=== PATIENT | female | born 1975 | race African-American/Black ===

== ENCOUNTER 2020-09-15 09:11 | Outpatient (REF) | payer BC, SELFPAY ==
[2020-09-15 11:33] LABS: Anion Gap 9 (12-20); Blood Urea Nitrogen 11 mg/dL (9-16); Calcium 9.5 mg/dL (8.4-10.2); Carbon Dioxide 29 mmol/L (22-29); Chloride 105 mmol/L (96-108); Estimated Glomerular Filt Rate 59; Glucose Random 84 mg/dL (60-115); Potassium 4.2 mmol/L (3.3-5.1); Sodium 139 mmol/L (135-145)
[2020-09-15 11:39] LABS: B Type Natriuretic Peptide 21 pg/mL (<100)
== END 2020-09-15 09:12 | disposition home or self-care (01) ==
LOC: HO.LAB 09:11
PROVIDERS: PCP Internal Medicine Endocrinology, Diabetes & Metabolism; Visit Provider Internal Medicine Cardiovascular Disease
DX: I42.8 Other cardiomyopathies (principal); I50.20 Unspecified systolic (congestive) heart failure; Z45.02 Encounter for adjustment and management of automatic implantable cardiac defibrillator
CPT/HCPCS: 36415; 80048; 83880

== ENCOUNTER → 2021-03-08 10:45 | Outpatient (REF) | payer BC, SELFPAY ==
--- NOTE | 2021-03-08 10:50 | CA_ITS ---
Transthoracic Echocardiogram Patient (Last, First, Middle): Gracy Nice, Gender: Female Date of : 1975 Age: 46 Procedure Date: 03/08/2021 Procedure Type: Transthoracic Echocardiogram Location: OP Height: 157.48 cm Weight: 63.5 kg BSA: 1.64 m2 Heart Rate: bpm BP: 102 / 60 mmHg Tool Turret Lathe Set Up Operator: NAIDA Referring MD: Horace Ramos MD Carbide Operator: Horace Ramos MD Symptoms: I42.8 - Other cardiomyopathies Study Quality: Good ECG Rhythm: Sinus Conclusions: - 1. Normal LV systolic and diastolic function 2. Mild mitral regurgitation 3. Normal RV systolic pressure 4. No pericardial effusion Findings Left Ventricle Normal left ventricular size, thickness, and systolic function. The visually estimated ejection fraction is between 60-65%. Spectral Doppler is indicative of a normal filling pattern. Peak longitudinal endocardial global strain is mildly reduced at-16.5% Right Ventricle Normal right ventricular cavity size and systolic function. Atria Both atria are normal in size. There is no evidence of interatrial shunt. Aortic Valve Normal aortic valve structure and function. There is no aortic valve stenosis. There is no aortic valve regurgitation. Mitral Valve There is mild anterior and posterior mitral leaflet thickening. There is mild mitral valve regurgitation. There is no mitral valve stenosis. Pulmonic Valve The pulmonic valve is likely normal. Tricuspid Valve Normal tricuspid valve structure. There is trace tricuspid valve regurgitation. The right ventricular systolic pressure is normal. The right ventricular systolic pressure is 20 mmHg. Normal right atrial pressure. There is no evidence of pulmonary hypertension. Great Vessels All visible segments of the aorta are normal in size. The pulmonary artery was not well visualized. Venous The inferior vena cava is normal in size and collapses greater than 50% with inspiration. Pericardium/Pleural There is no evidence of pericardial effusion. Prior Study Comparison No significant change compared to prior study dated: 03/13/2020. Measurements M-Mode Liner Measurements Normals - Women/Men LVIDd: 4.76 3.9-5.3/4.2-5.9 cm LVIDd Index: 2.90 1.9-3.2 cm/m2 LVIDs: 3.22 2.0-3.8 cm LVPWd: 0.72 0.6-0.9/0.6-1.0 cm M-Mode Volumes LV EDV: 105.00 LV ESV: 41.60 2D Linear Measurements IVSd: 0.76 0.6-0.9/0.6-1.0 cm LVIDd: 4.77 3.9-5.3/4.2-5.9 cm LVIDd Index: 2.91 2.4-3.2/2.2-3.1 cm/m2 LVIDs: 3.48 2.0-3.6 cm LVPWd: 0.61 0.7-1.1 cm Ao Root: 2.70 2.1-3.5 cm LA Diam: 3.20 2.7-3.8/3.0-4.0 cm LAIDs Index: 1.95 1.5-2.3 cm/m2 LV Mass: 127.39 67-162/88-224 g LV Mass Index: 77.68 43-95/49-115 g/m2 LVOT Diam: 1.90 3.0+(-)1.3 cm 2D Systolic Function EF 4C: 62.70 >55% EF 2C: 59.40 >55% EF BiP: 61.80 >55% M-Mode Systolic Function FS: 32.40 27-47/25-43% LVEF: 60.40 >55% Mitral Valve MV Pk E: 0.63 MV PK A: 0.33 MV Decel Time: 208.00 E/A: 1.90 E'Lateral: 14.70 E'Medial: 8.49 E/E' Med: 7.50 E/E' Lat: 4.30 PHT: 61.00 MVA PHT: 3.61 Decel [place]: 3.04 Aortic Valve AoV Pk Cm: 1.21 AoV Pk Grad: 6.00 LVOT LVOT Pk Cm: 1.02 LVOT Mn Cm: 0.72 LVOT VTI: 0.21 LVOT Pk Grad: 4.00 LVOT Mn Grad: 2.00 LVOT Diam: 1.90 LVOT Area: 2.84 Diastolic Function MV Pk E: 0.63 MV Pk A: 0.33 E/A: 1.90 E'Medial: 8.49 E/E' Med: 7.50 E' Laterial: 14.70 E/E' Lat: 4.30 Right Ventricle TAPSE (mm): 2.03 Tricuspid Valve TR Pk Cm: 2.04 TR Pk Grad: 17.00 RA Press: 3.00 RVSP: 20.00 Great Vessels Aorta Ao Root-2D: 2.70 2.0-3.7 cm Ao Asc: 2.90 2.1-3.4 cm Updated in Other Vendor System with Status of Final Horace Ramos MD electronically signed on 03/09/2021 12:34:20 PM with status of Final
== END ==
LOC: HO.CARD 10:45
PROVIDERS: Visit Provider Internal Medicine Cardiovascular Disease
DX: I34.0 Nonrheumatic mitral (valve) insufficiency (principal); I42.8 Other cardiomyopathies; I50.20 Unspecified systolic (congestive) heart failure
CPT/HCPCS: 93306

== ENCOUNTER → 2021-03-18 13:10 | Outpatient (BNVA) | payer BC, SELFPAY | PROVIDERS: PCP Internal Medicine; Referring Provider Internal Medicine; Visit Provider Internal Medicine Cardiovascular Disease | DX: I50.20 Unspecified systolic (congestive) heart failure (principal); I42.8 Other cardiomyopathies; I34.0 Nonrheumatic mitral (valve) insufficiency; Z79.899 Other long term (current) drug therapy; Z95.810 Presence of automatic (implantable) cardiac defibrillator | CPT/HCPCS: 93005 ==

== ENCOUNTER 2021-04-16 14:16 | Outpatient (REF) | payer BC, SELFPAY ==
--- NOTE | ~2021-04-16 | MM_ITS ---
EXAMINATION: MM SCREENING DIGITAL BREAST TOMOSYNTHESIS, BILATERAL CLINICAL INFORMATION: Screening. Asymptomatic. The lifetime risk of breast cancer based on the Tyrer-Cuzick Model is 8.8%. COMPARISON: Mammography: May 08, 2018 and studies dating back to January 21, 2015 TECHNIQUE: Digital breast tomosynthesis is performed in both the craniocaudal and mediolateral oblique views along with computer-aided detection (CAD). Synthesized 2D images are generated from the tomosynthesis. FINDINGS: The breasts are extremely dense, which lowers the sensitivity of mammography (ACR BI-RADS breast composition Category d). There are no significant masses, abnormal calcifications, or other abnormalities. Stable bilateral calcifications again seen. MM/MM tomosynthesis screening BI IMPRESSION: There are no significant changes from prior study. ASSESSMENT: BI-RADS 1: Negative RECOMMENDATION: Routine annual mammography screening. This patient's information was entered into a reminder system with a target due date for their next mammogram.
== END 2021-04-16 14:17 | disposition home or self-care (01) ==
LOC: HO.MAMMO 14:16
PROVIDERS: PCP Internal Medicine; Visit Provider Internal Medicine
DX: Z12.31 Encounter for screening mammogram for malignant neoplasm of breast (principal)
CPT/HCPCS: 77063; 77067

== ENCOUNTER → 2021-09-21 13:09 | Outpatient (BNVA) | payer BC, SELFPAY | PROVIDERS: PCP Internal Medicine; Referring Provider Internal Medicine; Visit Provider Internal Medicine Cardiovascular Disease ==

== ENCOUNTER → 2022-02-24 12:51 | Outpatient (REF) | payer BC, SELFPAY ==
--- NOTE | 2022-02-24 13:01 | CA_ITS ---
Transthoracic Echocardiogram Patient (Last, First, Middle): Gracy Nice, Gender: Female Date of : 1975 Age: 47 Procedure Date: 02/24/2022 Procedure Type: Transthoracic Echocardiogram Location: OP Height: 157.48 cm Weight: 64.41 kg BSA: 1.65 m2 Heart Rate: bpm BP: 100 / 60 mmHg Physical Therapy Aides Teacher: TO Referring MD: Horace Ramos MD Symptoms: I42.8 - Other cardiomyopathies Study Quality: Adequate ECG Rhythm: Sinus Conclusions: - The left ventricular systolic function is low normal. The calculated ejection fraction is 51% by biplane method. - No obvious valvular pathology seen on this study. Findings Left Ventricle Normal left ventricular cavity size. There is normal left ventricular wall thickness. The left ventricular systolic function is low normal. The calculated ejection fraction is 51% by biplane method. There is no evidence of regional wall motion abnormalities. Diastolic function is normal for age. LV peak GLS -14.9%. Right Ventricle Normal right ventricular cavity size and systolic function. Atria Both atria are normal in size. Aortic Valve There is a normal trileaflet aortic valve. There is no aortic valve stenosis. There is no aortic valve regurgitation. Mitral Valve There is mild anterior mitral leaflet thickening. There is trace mitral valve regurgitation. There is no mitral valve stenosis. Pulmonic Valve The pulmonic valve is likely normal. Tricuspid Valve Normal tricuspid valve structure. There is trace tricuspid valve regurgitation. The pulmonary artery systolic pressure is normal. Great Vessels The aortic annulus, sinuses of valsalva, asc aorta, and aortic arch are normal in size. Venous The inferior vena cava is normal in size and collapses greater than 50% with inspiration. Pericardium/Pleural There is no evidence of pericardial effusion. Prior Study Comparison Changes noted compared to prior study dated: 03/08/2021. LVEF lower than previously reported. Recommendations, Care & Conclusions No obvious valvular pathology seen on this study. Measurements 2D Linear Measurements IVSd: 0.79 0.6-0.9/0.6-1.0 cm LVIDd: 4.90 3.9-5.3/4.2-5.9 cm LVIDd Index: 2.97 2.4-3.2/2.2-3.1 cm/m2 LVIDs: 3.39 2.0-3.6 cm LVPWd: 0.62 0.7-1.1 cm LA Diam: 3.10 2.7-3.8/3.0-4.0 cm LAIDs Index: 1.88 1.5-2.3 cm/m2 LV Mass: 139.06 67-162/88-224 g LV Mass Index: 84.28 43-95/49-115 g/m2 LVOT Diam: 2.00 3.0+(-)1.3 cm 2D Systolic Function EF 4C: 52.60 >55% EF 2C: 47.00 >55% EF BiP: 51.10 >55% Mitral Valve MV Pk E: 0.53 MV PK A: 0.44 MV Decel Time: 172.00 E/A: 1.20 E'Lateral: 12.10 E'Medial: 6.20 E/E' Med: 8.60 E/E' Lat: 4.40 PHT: 50.00 MVA PHT: 4.40 Decel [place]: 3.09 Aortic Valve AoV Pk Cm: 1.18 AoV Mn Cm: 0.86 AoV VTI: 0.23 AoV Pk Grad: 6.00 Aov Mn Grad: 3.00 JAVIER Cont.VTI: 2.02 LVOT LVOT Pk Cm: 0.84 LVOT Mn Cm: 0.51 LVOT VTI: 0.15 LVOT Pk Grad: 3.00 LVOT Mn Grad: 1.00 LVOT Diam: 2.00 LVOT Area: 3.14 Diastolic Function MV Pk E: 0.53 MV Pk A: 0.44 E/A: 1.20 E'Medial: 6.20 E/E' Med: 8.60 E' Laterial: 12.10 E/E' Lat: 4.40 Right Ventricle TAPSE (mm): 17.80 TVS' Cm: 9.25 Tricuspid Valve TR Pk Cm: 1.94 TR Pk Grad: 15.00 RA Press: 3.00 RVSP: 18.00 Great Vessels Aorta Sinus of Valsalva: 3.18 2.0-3.[address] [place]: 2.43 1.7-3.4 cm Ao Asc: 3.10 2.1-3.4 cm Ao Arch: 2.70 Updated in Other Vendor System with Status of Final Idris Ly MD electronically signed on 02/25/2022 12:37:11 PM with status of Final
== END ==
LOC: HO.CARD 12:51
PROVIDERS: PCP Internal Medicine; Visit Provider Internal Medicine Cardiovascular Disease
DX: I42.8 Other cardiomyopathies (principal)
CPT/HCPCS: 93306; 93356

== ENCOUNTER 2022-07-21 12:37 | Outpatient (REF) | payer BC, SELFPAY | END 2022-07-21 12:38 | disposition home or self-care (01) | LOC: HO.MAMMO 12:37 | PROVIDERS: Visit Provider Internal Medicine | DX: Z12.31 Encounter for screening mammogram for malignant neoplasm of breast (principal) | CPT/HCPCS: 77063; 77067 ==

== ENCOUNTER → 2022-08-15 13:45 | Outpatient (BNVA) | payer BC, SELFPAY | PROVIDERS: PCP Internal Medicine; Referring Provider Internal Medicine; Visit Provider Internal Medicine Cardiovascular Disease | DX: I42.8 Other cardiomyopathies (principal); Z95.810 Presence of automatic (implantable) cardiac defibrillator | CPT/HCPCS: 93005 ==

== ENCOUNTER 2023-06-19 13:09 | Outpatient (AMB) | payer BC, SELFPAY ==
[2023-06-19 13:30] VITALS: BP 114/62; PULSE 64; BMI 26.1
--- NOTE | 2023-06-19 13:30 | A.OFFVIS_ITS ---
Intake Vital Signs 06/19/23 13:30 Height 5 ft 2 in Weight 142 lb 13.753 oz BMI 26.1 BP 114/62 Blood Pressure Location Lt brachial Position Sitting Pulse 64 Pulse Source Pulse Oximeter Intake Visit Reasons: 6 month f/u pacer check Allergies No Known Allergies [No Known Allergies*] Allergy (Verified 06/19/23 13:33) Medication List - Last Reconciled 06/19/23 by Sandra Agrawal, FIRST OFFICER AND [employer] INSTRUCTOR-C carvedilol 25 mg PO BID spironolactone 25 mg PO DAILY valsartan 160 mg PO BID HPI 6 month f/u pacer check HPI Details Gracy is a 48-year-old female with past medical history of nonischemic cardiomyopathy, heart failure with reduced EF, subcutaneous ICD, mitral regurgitation who presents for follow-up. Today she reports that she has been feeling very well. She has no concerning symptoms. She denies chest discomfort, shortness of breath, palpitation, presyncope, syncope, PND, orthopnea or edema. She has not been doing as much physical activity as she would like. She is currently working from home. Taking all meds as directed. [facility] Medical History ICD (implantable cardioverter-defibrillator) in place Nonischemic cardiomyopathy Mitral regurgitation Heart failure with reduced ejection fraction History of transesophageal echocardiography (KASHIF) Surgical History Hx of section History of permanent cardiac pacemaker placement Family History Father No problems noted. Mother Colon cancer Social History Alcohol intake: never Patient Tobacco Use Status: Never used Tobacco Review of Systems Const All systems reviewed & are unremarkable except as noted in HPI and below ENT Denies dizziness Card Denies chest pain, Denies chest pain at rest, Denies chest pain with activity, Denies rapid heart rate, Denies pedal edema, Denies edema, Denies leg edema, Denies lightheadedness, Denies palpitations, Denies dyspnea, Denies dyspnea on exertion and Denies orthopnea Resp Denies cough, Denies dyspnea and Denies dyspnea on exertion GI Denies hematochezia and Denies change in stool character Musc Denies abnormal gait, Denies limited range of motion, Denies muscle cramps, Denies muscle weakness, Denies numbness, Denies radiating pain into limb, Denies stiffness and Denies tingling Neuro Denies abnormal gait, Denies dizziness, Denies numbness and Denies tingling Endo Denies palpitations Physical Exam Vital Signs: Last Vital Signs Pulse 64 06/19/23 13:30 BP 114/62 06/19/23 13:30 BMI result Body Mass Index 26.1 Const General: cooperative, healthy appearing, comfortable and no acute distress Orientation/consciousness: patient oriented x3 HEENT Head: Yes normal to inspection Eyes Sclerae: sclerae normal Neck Neck: Yes normal visual inspection Carotids: normal carotid upstroke Chest Chest palpation & inspection: normal inspection of the chest Resp Effort & Inspection: normal respiratory effort Auscultation: clear to auscultation bilaterally, no crackles, no rales, no rhonchi and no wheezes Cardio Jugular venous distension: no JVD Rate: regular rate Rhythm: regular rhythm Heart sounds: S1 normal heart sound present, S2 normal heart sound present, no murmurs and no rubs Peripheral pulses: Peripheral pulses 2+ throughout GI Inspection: Yes normal to inspection Skin General skin exam: no rashes or lesions noted Neuro General: patient oriented x3 Extrem General: Yes normal to inspection Psych Appearance: grossly normal Mental Status: mental status grossly normal Speech and movement: Normal speech and movement present Office Procedures Cardiac Device Check Cardiac Device Check Details: [employer] subcutaneous ICD interrogation today showing battery 35%, no episodes, no shocks delivered, rep present, soft were updated. [id number] Device Interrogation, implantable defibrillator Procedure code (CPT) selection complete Assessment & Plan Assessment & Plan (1) Nonischemic cardiomyopathy: Code(s): I42.8 - Other cardiomyopathies Plan: History of nonischemic cardiomyopathy. Unknown if genetic versus peripartum. Subcutaneous ICD in place. Benefit of Genetic counseling was previously reviewed with her. She is currently on carvedilol and valsartan for neurohormonal modulation. She was intolerant to Entresto in the past and describes allergic type reaction to it. She is tolerating valsartan without any concerning symptoms. Last echocardiogram done on 02/24/2022 showed EF 51%, no significant valve abnormalities. On exam today she has no clinical signs of decompensated heart failure. Signs and symptoms of heart failure reviewed. Will update echo prior to her next visit. Cardiology follow-up 6 months, sooner if needed (2) ICD (implantable cardioverter-defibrillator) in place: Code(s): Z95.810 - Presence of automatic (implantable) cardiac defibrillator Plan: Subcutaneous ICD in place. Interrogation today shows it is functioning normally. No therapies required. Instructed on remote monitoring. Office device check in 6 months (3) Mitral regurgitation: Code(s): I34.0 - Nonrheumatic mitral (valve) insufficiency Plan: Echocardiogram 03/08/2021 shows mild anterior and posterior mitral leaflet thickening, mild mitral valve regurgitation, no stenosis. Echocardiogram done 02/24/2022 shows mild anterior mitral leaflet thickening, trace mitral valve regurgitation, no mitral stenosis. (4) Heart failure with reduced ejection fraction: Code(s): I50.20 - Unspecified systolic (congestive) heart failure Plan: Stable as above Orders: Orders CA echo transthoracic complete 5 Months I34.0 - Nonrheumatic mitral (valve) insufficiency, I50.20 - Unspecified systolic (congestive) heart failure Coding Level of Care Code Est Pt Level 3 (40160) Diagnoses Nonischemic cardiomyopathy I42.8 ICD (implantable cardioverter-defibrillator) in place Z95.810 Mitral regurgitation I34.0 Heart failure with reduced ejection fraction I50.20 CPT Codes Cardiac Device Check - Cardiac Device 9: [id number] Device Interrogation, implantable defibrillator ([id number]) Time Spent (min) 24
== END 2023-06-19 13:55 | disposition home or self-care (01) ==
PROVIDERS: PCP Internal Medicine; Visit Provider Nurse Practitioner Family
DX: I42.8 Other cardiomyopathies (principal); Z95.810 Presence of automatic (implantable) cardiac defibrillator; I34.0 Nonrheumatic mitral (valve) insufficiency; I50.20 Unspecified systolic (congestive) heart failure
CPT/HCPCS: 93289; 99213

== ENCOUNTER → 2023-06-19 13:09 | Outpatient (BNVA) | payer BC, SELFPAY | PROVIDERS: PCP Internal Medicine; Visit Provider Nurse Practitioner Family ==

== ENCOUNTER 2023-12-18 14:23 | Outpatient (AMB) | payer BC, SELFPAY ==
[2023-12-18 14:37] VITALS: BP 120/74; PULSE 72; BMI 25.8
--- NOTE | 2023-12-18 14:37 | A.OFFVIS_ITS ---
Vital Signs 12/18/23 14:37 Height 5 ft 2 in Weight 141 lb 1.533 oz BMI 25.8 BP 120/74 Blood Pressure Location Lt brachial Position Sitting Pulse 72 Intake Visit Reasons: 6 mth w/ [facility] Intake Note: 6 month follow[facility]up with [facility] acute [facility] feeling good Infrastructure Tech Required: No Allergies Entresto Adverse Reaction (Intermediate, Uncoded 10/31/23 11:17) Intolerance Medication List - Last Reconciled 12/18/23 by Horace Ramos MD carvedilol 25 mg PO BID spironolactone 25 mg PO DAILY valsartan 160 mg PO BID HPI Comments Details: Gracy comes for follow-up. She has been doing well from cardiac perspective. No remote monitoring of ICD is available. Last checked about a year and half ago. She has been doing well otherwise. She has been exercising regularly. Denies any exertional shortness of breath. No orthopnea, PND, leg edema. Taking all her medications regularly. Denies any palpitations, ICD discharge. [facility] Medical History ICD (implantable cardioverter-defibrillator) in place Nonischemic cardiomyopathy Mitral regurgitation Heart failure with reduced ejection fraction History of transesophageal echocardiography (KASHIF) Surgical History Hx of section History of permanent cardiac pacemaker placement Family History Father No problems noted. Mother Colon cancer Social History Alcohol intake: never Patient Tobacco Use Status: Never used Tobacco Review of Systems Const Denies chills, Denies fatigue, Denies fever(s), Denies frequent falls, Denies weakness, Denies weight gain and Denies weight loss ENT Denies dizziness Card Denies chest pain, Denies leg edema, Denies lightheadedness, Denies palpitations, Denies dyspnea, Denies dyspnea on exertion, Denies orthopnea and Denies other (loss of consciousness) Resp Denies cough, Denies dyspnea and Denies dyspnea on exertion GI Denies hematochezia and Denies change in stool character Musc Denies abnormal gait, Denies muscle weakness, Denies numbness, Denies radiating pain into limb and Denies tingling Neuro Denies abnormal gait, Denies dizziness, Denies frequent falls, Denies numbness, Denies tingling and Denies weakness Endo Denies fatigue and Denies palpitations Physical Exam Vital Signs: Last Vital Signs Pulse 72 12/18/23 14:37 BP 120/74 12/18/23 14:37 BMI result Body Mass Index 25.8 Const General: cooperative, comfortable, alert, awake and well groomed Nutritional Appearance: average body habitus Orientation/consciousness: patient oriented x3 Limitations: no limitations Neck Neck: Yes normal visual inspection, Yes trachea midline, Yes supple and Yes no JVD Chest Chest palpation & inspection: normal inspection of the chest Resp Effort & Inspection: normal respiratory effort Auscultation: clear to auscultation bilaterally Cardio Jugular venous distension: no JVD Palpation: normal PMI Rate: regular rate Rhythm: regular rhythm Heart sounds: S1 normal heart sound present and S2 normal heart sound present Skin General skin exam: no rashes or lesions noted Neuro General: patient oriented x3 and no focal motor deficits Extrem General: Yes no clubbing, cyanosis or edema Psych Appearance: grossly normal Office Procedures Cardiac Device Check Cardiac Device Check Details: Subcutaneous [employer] ICD in place. Battery life is 29%. System impedances within normal limits. No arrhythmias detected. Ventricular sensing is adequate. [id number] Device Interrogation, implantable defibrillator Procedure code (CPT) selection complete Assessment & Plan Assessment & Plan (1) Heart failure with reduced ejection fraction: Code(s): I50.20 - Unspecified systolic (congestive) heart failure Category: Medical Plan: Prior history of heart failure with reduced ejection fraction with marked LV systolic dysfunction with heart failure syndrome in LV systolic function having improved. She does not have any evidence of heart failure at this point time, currently not on any diuretic regimen. She seems to be doing well with NYHA class 1 syndrome. LV ejection fraction has near normalized and she is tolerated current neurohormonal modulation very well. Continue the same. Importance of medical therapy was discussed. Continue carvedilol, spironolactone and valsartan. 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 Follow-up echocardiogram in near future. (2) ICD (implantable cardioverter-defibrillator) in place: Code(s): Z95.810 - Presence of automatic (implantable) cardiac defibrillator Category: Medical Plan: ICD in place for primary prevention. Working well. Advise to turn on her remote monitoring device so we can check her device quarterly. Will follow up in the clinic in 6 months time. Will follow up in 6 months. Thank you for allowing me to partake in the care Coding Level of Care Code Est Pt Level 4 (18991) Diagnoses Heart failure with reduced ejection fraction I50.20 ICD (implantable cardioverter-defibrillator) in place Z95.810 CPT Codes Cardiac Device Check - Cardiac Device 9: [id number] Device Interrogation, implantable defibrillator ([id number])
== END 2023-12-18 15:07 | disposition home or self-care (01) ==
PROVIDERS: PCP Internal Medicine; Visit Provider Internal Medicine Cardiovascular Disease
DX: I50.20 Unspecified systolic (congestive) heart failure (principal); Z95.810 Presence of automatic (implantable) cardiac defibrillator
CPT/HCPCS: 93260; 99214

== ENCOUNTER → 2023-12-18 14:23 | Outpatient (BNVA) | payer BC, SELFPAY | PROVIDERS: PCP Internal Medicine; Visit Provider Internal Medicine Cardiovascular Disease ==

== ENCOUNTER → 2024-01-11 23:59 | Outpatient (BNV) | payer BC, SELFPAY ==
--- NOTE | 2024-01-22 13:26 | A.OFFVIS_ITS ---
Intake Visit Reasons: Remote ICD Device Check - [employer] Allergies Entresto Adverse Reaction (Intermediate, Uncoded 10/31/23 11:17) Intolerance PFSH Medical History ICD (implantable cardioverter-defibrillator) in place Nonischemic cardiomyopathy Mitral regurgitation Heart failure with reduced ejection fraction History of transesophageal echocardiography (KASHIF) Surgical History Hx of section History of permanent cardiac pacemaker placement Family History Father No problems noted. Mother Colon cancer Social History Alcohol intake: never Patient Tobacco Use Status: Never used Tobacco Office Procedures Cardiac Device Check Cardiac Device Check Details: Remote ICD report generated 01/15/2024. ICD function is adequate. Battery life is at 29%, stable [id number] Cardiac Device Interrogation, cardio physiologic monitor Procedure code (CPT) selection complete Assessment & Plan Assessment & Plan (1) ICD (implantable cardioverter-defibrillator) in place: Code(s): Z95.810 - Presence of automatic (implantable) cardiac defibrillator Category: Medical Plan: See above Coding Level of Care Code Procedure Only Diagnoses ICD (implantable cardioverter-defibrillator) in place Z95.810 CPT Codes Cardiac Device Check - Cardiac Device 15: [id number] Cardiac Device Interrogation, cardio physiologic monitor ([id number])
== END ==
PROVIDERS: PCP Internal Medicine; Visit Provider Internal Medicine Cardiovascular Disease
DX: Z45.02 Encounter for adjustment and management of automatic implantable cardiac defibrillator (principal)
CPT/HCPCS: 93295

== ENCOUNTER 2024-02-02 11:30 | Outpatient (REF) | payer BC, SELFPAY ==
--- NOTE | ~2024-02-02 | MM_ITS ---
EXAMINATION: MM SCREENING DIGITAL BREAST TOMOSYNTHESIS, BILATERAL CLINICAL INFORMATION: Screening. Asymptomatic. COMPARISON: Mammography: This study is compared with prior exams dating back to 2017. TECHNIQUE: Digital breast tomosynthesis is performed in both the craniocaudal and mediolateral oblique views along with computer-aided detection (CAD). Synthesized 2D images are generated from the tomosynthesis. FINDINGS: The breasts are heterogeneously dense, which may obscure small masses (ACR BI-RADS breast composition Category c). There are no significant masses, abnormal calcifications, or other abnormalities. There are 2 biopsy tissue markers in the right breast. MM/MM tomosynthesis screening BI IMPRESSION: No mammographic evidence of malignancy. ASSESSMENT: BI-RADS BI-RADS 2 - Benign Findings RECOMMENDATION: Routine annual mammography screening. 1 year F/U This examination should not preclude the clinical evaluation of a suspicious palpable abnormality. This patient's information was entered into a reminder system with a target due date for their next mammogram.
--- NOTE | 2024-02-02 12:14 | CA_ITS ---
Transthoracic Echocardiogram Patient (Last, First, Middle): Gracy Nice, Gender: Female Date of : 1975 Age: 49 Procedure Date: 02/02/2024 Procedure Type: Transthoracic Echocardiogram Location: OP Height: 157.48 cm Weight: 60.78 kg BSA: 1.61 m2 Heart Rate: 58 bpm BP: 108 / 56 mmHg Scanning Clerk: [id number] Referring MD: Horace Ramos MD Symptoms: I42.8 - Other cardiomyopathies Study Quality: Adequate ECG Rhythm: Bradycardia Conclusions: - The left ventricular systolic function is mildly decreased. The calculated ejection fraction is 49% by biplane method. - No obvious valvular pathology seen on this study. Findings Left Ventricle Normal left ventricular cavity size. There is normal left ventricular wall thickness. The left ventricular systolic function is mildly decreased. The calculated ejection fraction is 49% by biplane method. There is mild global hypokinesis. Diastolic function is normal for age. LV peak GLS -14.7%, possibly some under-estimation. Right Ventricle Normal right ventricular cavity size. There is low normal right ventricular systolic function. Atria Both atria are normal in size. Aortic Valve There is a normal trileaflet aortic valve. There is no aortic valve stenosis. There is no aortic valve regurgitation. Mitral Valve The mitral valve appears normal. There is mild mitral valve regurgitation. There is no mitral valve stenosis. Pulmonic Valve The pulmonic valve is likely normal. Tricuspid Valve Normal tricuspid valve structure. There is mild tricuspid valve regurgitation. There is no evidence of pulmonary hypertension. Great Vessels The asc aorta is normal in size. Venous The inferior vena cava is normal in size and collapses greater than 50% with inspiration. Pericardium/Pleural There is no evidence of pericardial effusion. Prior Study Comparison No significant change compared to prior study dated: 02/24/2022. Recommendations, Care & Conclusions No obvious valvular pathology seen on this study. Measurements 2D Linear Measurements IVSd: 0.79 0.6-0.9/0.6-1.0 cm LVIDd: 5.15 3.9-5.3/4.2-5.9 cm LVIDd Index: 3.20 2.4-3.2/2.2-3.1 cm/m2 LVIDs: 3.96 2.0-3.6 cm LVPWd: 0.55 0.7-1.1 cm LA Diam: 3.40 2.7-3.8/3.0-4.0 cm LAIDs Index: 2.11 1.5-2.3 cm/m2 LV Mass: 142.63 67-162/88-224 g LV Mass Index: 88.59 43-95/49-115 g/m2 LVOT Diam: 2.00 3.0+(-)1.3 cm 2D Systolic Function EF 4C: 47.60 >55% EF 2C: 52.20 >55% EF BiP: 48.90 >55% Mitral Valve MV Pk E: 0.70 MV PK A: 0.36 MV Decel Time: 260.00 E/A: 2.00 E'Lateral: 11.30 E'Medial: 8.27 E/E' Med: 8.50 E/E' Lat: 6.20 PHT: 76.00 MVA PHT: 2.[address] [place]: 2.70 MR VTI: 1.86 Aortic Valve AoV Pk Cm: 1.10 AoV Pk Grad: 5.00 JAVIER: 2.50 LVOT LVOT Pk Cm: 0.88 LVOT Mn Cm: 0.62 LVOT VTI: 0.19 LVOT Pk Grad: 3.00 LVOT Mn Grad: 2.00 LVOT Diam: 2.00 LVOT Area: 3.14 Diastolic Function MV Pk E: 0.70 MV Pk A: 0.36 E/A: 2.00 E'Medial: 8.27 E/E' Med: 8.50 E' Laterial: 11.30 E/E' Lat: 6.20 Right Ventricle TAPSE (mm): 23.00 Tricuspid Valve TR Pk Cm: 2.05 TR Pk Grad: 17.00 RA Press: 3.00 RVSP: 20.00 Great Vessels Aorta Sinus of Valsalva: 3.20 2.0-3.5 cm Ao Asc: 3.10 2.1-3.4 cm Pulmonary Veins Pulm Vein S/D 1.00 Pulmonary Valve PV Pk Cm: 0.62 Peak PV Grad: 2.00 Updated in Other Vendor System with Status of Final Idris Ly MD electronically signed on 02/03/2024 1:02:44 PM with status of Final
== END 2024-02-02 11:31 | disposition home or self-care (01) ==
LOC: HO.MAMMO 11:30
PROVIDERS: PCP Internal Medicine; Visit Provider Internal Medicine
DX: Z12.31 Encounter for screening mammogram for malignant neoplasm of breast (principal); I42.8 Other cardiomyopathies
CPT/HCPCS: 77063; 77067; 93306; 93356

== ENCOUNTER → 2024-02-02 11:45 | Outpatient (BNV) | payer BC, SELFPAY | PROVIDERS: PCP Internal Medicine; Visit Provider Radiology Diagnostic Radiology | DX: Z12.31 Encounter for screening mammogram for malignant neoplasm of breast (principal) | CPT/HCPCS: 77063; 77067 ==

== ENCOUNTER → 2024-02-02 12:14 | Outpatient (BNV) | payer BC, SELFPAY | PROVIDERS: PCP Internal Medicine; Visit Provider Internal Medicine | DX: I34.0 Nonrheumatic mitral (valve) insufficiency (principal); I36.1 Nonrheumatic tricuspid (valve) insufficiency | CPT/HCPCS: 93306; 93356 ==

== ENCOUNTER 2024-02-27 07:05 | Outpatient (REF) | payer BC, SELFPAY ==
[2024-02-27 07:24] LABS: MANUAL DIFF FLAG NO
[2024-02-27 08:03] LABS: Basophils Percent Auto 0.9 % (0-2); Eosinophils Absolute Auto 0.5 X10*3/uL (0.0-0.4); Eosinophils Percent Auto 11.6 % (0-4); Hematocrit 34.7 % (37.0-47.0); Hemoglobin 11.7 g/dl (12.0-16.0); Imm Gran Abs Auto 0.01 X10*3/uL (0.00-0.03); Imm Gran Pct Auto 0.2 % (0.0-0.4); Lymphocytes Absolute Auto 1.9 X10*3/uL (1.2-4.9); Lymphocytes Percent Auto 44.4 % (20-40); Mean Corpuscular HGB Conc 33.7 g/dl (31.0-35.0); Mean Corpuscular Hemoglobin 28.3 pg (27.0-33.0); Mean Corpuscular Volume 83.8 fL (80.0-98.0); Mean Platelet Volume 10.6 fL (9.4-12.3); Monocytes Absolute Auto 0.5 X10*3/uL (0.1-1.2); Monocytes Percent Auto 11.6 % (2-11); Neutrophils Absolute Auto 1.3 x10*3/uL (2.0-8.3); Neutrophils Percent Auto 31.3 % (45-73); Platelet Count 184 X10*3/uL (160-400); Red Blood Count 4.14 X10*6/uL (4.20-5.50); Red Cell Distribution Width 12.1 % (11.0-16.0); White Blood Count 4.3 X10*3/uL (4.8-10.8)
[2024-02-27 08:04] LABS: Prothrombin Time 12.1 SEC (11.1-13.3)
[2024-02-27 08:28] LABS: Anion Gap 11 (12-20); Blood Urea Nitrogen 10 mg/dL (9-16); Calcium 9.7 mg/dL (8.4-10.2); Carbon Dioxide 25 mmol/L (22-29); Chloride 107 mmol/L (96-108); Estimated Glomerular Filt Rate > 60; Glucose Random 93 mg/dL (60-115); Potassium 3.9 mmol/L (3.3-5.1); Sodium 139 mmol/L (135-145)
== END 2024-02-27 07:06 | disposition home or self-care (01) ==
LOC: HO.LAB 07:05
PROVIDERS: PCP Internal Medicine; Visit Provider Internal Medicine Cardiovascular Disease
DX: Z45.02 Encounter for adjustment and management of automatic implantable cardiac defibrillator (principal); Z79.01 Long term (current) use of anticoagulants
CPT/HCPCS: 36415; 80048; 85025; 85610

== ENCOUNTER 2024-02-28 06:24 | Day surgery (SDC) | payer BC, SELFPAY ==
--- NOTE | 2024-02-27 09:06 | HO.ANESPROP2 ---
Documented by User: Lyssa Cardona NP 02/27/24 09:19 HPI - Anesthesia Eval Consult details Narrative: 49yo F for ICD Generator Change ICD inserted 2018 Follows [facility] [place] for history of heart failure with reduced ejection fraction with marked LV systolic dysfunction with heart failure syndrome in LV systolic function having improved. Last office visit 11/2023: stable without limitations in activity PMFSH Active Problems Active Problems: All Active Problems ICD (implantable cardioverter-defibrillator) in place (Acute) Nonischemic cardiomyopathy (Acute) Mitral regurgitation (Acute) Heart failure with reduced ejection fraction (Acute) Past Medical History Medical History (Updated 02/05/24 @ 07:48 by Nicole Banda NP) ICD (implantable cardioverter-defibrillator) in place Nonischemic cardiomyopathy Mitral regurgitation Heart failure with reduced ejection fraction History of transesophageal echocardiography (KASHIF) Family History Family History Father No problems noted. Mother Colon cancer Surgical History Surgical History Hx of section History of permanent cardiac pacemaker placement Social History Social History Alcohol intake: never Patient Tobacco Use Status: Never used Tobacco Use of substances other than those prescribed or required for medical reasons: No Are you DNR?: No Advance Directives: No Advance Directives Information Provided: Yes Meds Allergies Allergy/AdvReac Type Severity Reaction Status Date / Time Entresto AdvReac Intermediate Intolerance Uncoded 02/28/24 06:38 Exam Pertinent Lab Results Pertinent Lab Results: Laboratory Tests 02/27/24 07:22 WBC 4.3 L Hgb 11.7 L Hct 34.7 L Plt Count 184 Sodium 139 Potassium 3.9 Chloride 107 Carbon Dioxide 25 BUN 10 Creatinine 0.98 Narrative Narrative: Cardiac Device Check 12/2023 Details: Remote ICD report generated 01/15/2024. ICD function is adequate. Battery life is at 29%, stable [id number] Cardiac Device Interrogation, cardio physiologic monitor ECHO 2023 Conclusions: - The left ventricular systolic function is mildly decreased. The calculated ejection fraction is 49% by biplane method. - No obvious valvular pathology seen on this study. Assessment and Plan Assessment Anesthesia Assessment: Chart Reviewed Documented by User: Esvin Stock MD 02/28/24 07:36 PMFSH Past Medical History Medical History (Updated 02/05/24 @ 07:48 by Nicole Banda NP) ICD (implantable cardioverter-defibrillator) in place Nonischemic cardiomyopathy Mitral regurgitation Heart failure with reduced ejection fraction History of transesophageal echocardiography (KASHIF) Family History Family History Father No problems noted. Mother Colon cancer Family history of problems with anesthesia: No Surgical History Surgical History Hx of section History of permanent cardiac pacemaker placement History of Problems with Anesthesia: No Social History Social History Alcohol intake: never Patient Tobacco Use Status: Never used Tobacco Use of substances other than those prescribed or required for medical reasons: No Are you DNR?: No Advance Directives: No Advance Directives Information Provided: Yes Meds Allergies Allergy/AdvReac Type Severity Reaction Status Date / Time Entresto AdvReac Intermediate Intolerance Uncoded 02/28/24 06:38 Exam Airway Mallampati Class: II TM Dist: <=3cm Neck ROM: Full Loose/Missing/Broken Teeth: No Heart: ok. see above. Lungs: ok Assessment and Plan Assessment Anesthesia Assessment: Anesthesia Plan Discussed Final Anesthetic Review Family History of Problems with Anesthesia: No History of Problems with Anesthesia: No NPO: Yes ASA Class: III Final Preanesthetic Review: No Changes in Pt Med Stat, Meds/Allgs Chart Reviewed, Consent Obtained/Reviewed and Anes Risks/Benef Reviewed Patient Risk: Intermediate Procedure Risk: Low Anesthetic Plan Anesthetic Plan: Agree w/ Assess. and Plan and TIVA Disposition: Standard PACU
[2024-02-28 06:41] VITALS: BP 108/77; PULSE 75; RESP 18; TEMP 36.6; O2SAT 99; BMI 26.7
[2024-02-28 06:47] LABS: UPreg QC Valid YES; Urine Pregnancy NEGATIVE (NEGATIVE)
[2024-02-28] MEDS: Lactated Ringers 1,000 ML 100 ML IVCONT (06:56)
[2024-02-28 09:20] VITALS: BP 97/62; PULSE 72; RESP 16; TEMP 36.1; O2SAT 99
[2024-02-28 09:25] VITALS: BP 102/66; PULSE 66; RESP 16; O2SAT 98
[2024-02-28 09:30] VITALS: BP 104/67; PULSE 64; RESP 16; O2SAT 99
[2024-02-28 09:35] VITALS: BP 112/70; PULSE 62; RESP 16; O2SAT 100
[2024-02-28 09:50] VITALS: BP 115/71; PULSE 68; RESP 16; TEMP 36.3; O2SAT 100
--- NOTE | 2024-02-28 11:17 | W.PM.OPN ---
Operative Note Operative Note Date of Service: 02/28/24 Narrative: Subcutaneous?ICD?Generator Changeout? NAME OF PROCEDURE: ? Subcutaneous?ICD? INDICATION FOR PROCEDURE:??Primary prevention ICD for systolic heart failure ? SEDATION:??General anesthesia Description of Procedure:??Patient was identified brought to the electrophysiology laboratory in a postabsorptive state.??The left sided chest region extending laterally to the left posterior axillary line and through the left axilla. was prepped and draped in usual sterile fashion,?The initial incision was made lateral to the left of the pectoralis major muscle in a diagonal approach and was carried to the level of the pectoralis fascia in a diagonal approach and was carried to the level of the muscle.? Dissection was then carried down posteriorly along the thoracic cage deep to the latissimus dorsi muscle, where hemostasis was assured inside the pocket to accommodate the?ICD?pulse generator. The patient received IV Antibiotics prior to the case for surgical prophylaxis. Hemostasis was obtained with electrocautery. Substernal pocket was made and the lead was tunneled into the pocket and towards the midline. The ICD?pulse generator was programmed and was attached to the lead, with the lead being appropriately and fully inserted into the header of the device and the set screw was tightened using the torque wrench.? The?ICD?was then placed into the?ICD?pocket with the lead posterior to the pulse generator.? The head of the?ICD?was secured to the latissimus dorsi fascia using Ethibond suture.? The pockets were then closed with 3 layers of absorbable sutures.?? Patient tolerated the procedure well.??There were no complications. ? IMPRESSION: ? Subcutaneous?ICD?placement ([employer] PLAN: ? 1.?Routine postprocedure monitoring. 2. ? ?Pain control
== END 2024-02-28 10:34 | disposition home or self-care (01) ==
PROVIDERS: Nurse Practitioner; PCP Internal Medicine; Visit Provider Internal Medicine Cardiovascular Disease
PROC: 0JPT0PZ Removal of Cardiac Rhythm Related Device from Trunk Subcutaneous Tissue and Fascia, Open Approach (ICD-10-PCS; principal; 2024-02-28 07:30)
DX: Z45.02 Encounter for adjustment and management of automatic implantable cardiac defibrillator (principal); I50.20 Unspecified systolic (congestive) heart failure; I42.8 Other cardiomyopathies; I34.0 Nonrheumatic mitral (valve) insufficiency
CPT/HCPCS: 33262; 81025; C1722; C1894; J0690; J1100; J2250; J2405; J2704; J2795; J3010; J3370; Q9967

== ENCOUNTER 2024-04-15 13:07 | Outpatient (AMB) | payer BC, SELFPAY ==
--- NOTE | 2024-04-15 13:36 | A.OFFVIS_ITS ---
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 She has been doing very well. She is status post pulse generator change for her subcutaneous ICD. No new cardiac symptoms. Takes all medications. Exercise regularly without any symptoms of shortness of breath. No orthopnea, PND, leg edema. No side effects medical therapy. No prolonged palpitation irregular heartbeat. No ICD discharge. Echocardiogram done recently showed reduced LV ejection fraction 49% [facility] Medical History (Updated 04/15/24 @ 16:10 by Horace Ramos MD) Heart failure with reduced ejection fraction ICD (implantable cardioverter-defibrillator) in place Nonischemic cardiomyopathy Mitral regurgitation History of transesophageal echocardiography (KASHIF) Surgical History Hx of section History of permanent cardiac pacemaker placement Family History Father No problems noted. Mother Colon cancer Social History Alcohol intake: never Patient Tobacco Use Status: Never used Tobacco Review of Systems Const Denies chills, Denies fatigue, Denies fever(s), Denies frequent falls, Denies weakness, Denies weight gain and Denies weight loss ENT Denies dizziness Card Denies chest pain, Denies leg edema, Denies lightheadedness, Denies palpitations, Denies dyspnea, Denies dyspnea on exertion, Denies orthopnea and Denies other (loss of consciousness) Resp Denies cough, Denies dyspnea and Denies dyspnea on exertion GI Denies hematochezia and Denies change in stool character Musc Denies abnormal gait, Denies muscle weakness, Denies numbness, Denies radiating pain into limb and Denies tingling Neuro Denies abnormal gait, Denies dizziness, Denies frequent falls, Denies numbness, Denies tingling and Denies weakness Endo Denies fatigue and Denies palpitations Physical Exam Vital Signs: Last Vital Signs Pulse 68 04/15/24 13:37 BP 120/70 04/15/24 13:37 BMI result Body Mass Index 25.8 Const General: cooperative, comfortable, alert, awake and well groomed Nutritional Appearance: average body habitus Orientation/consciousness: patient oriented x3 Limitations: no limitations Neck Neck: Yes normal visual inspection, Yes trachea midline, Yes supple and Yes no JVD Chest Chest palpation & inspection: normal inspection of the chest Resp Effort & Inspection: normal respiratory effort Auscultation: clear to auscultation bilaterally Cardio Jugular venous distension: no JVD Palpation: normal PMI Rate: regular rate Rhythm: regular rhythm Heart sounds: S1 normal heart sound present and S2 normal heart sound present Skin General skin exam: no rashes or lesions noted Neuro General: patient oriented x3 and no focal motor deficits Extrem General: Yes no clubbing, cyanosis or edema Psych Appearance: grossly normal Office Procedures Cardiac Device Check Cardiac Device Check Details: [employer] subcutaneous ICD in place battery life is 99%. No arrhythmias detected. System impedance is within normal limits. Sensing is excellent. [id number]-[id number] Device Interrogation, implantable defibrillator Procedure code (CPT) selection complete EKG Details: EKG shows normal sinus rhythm with anterior T-wave inversions most likely due to cardiomyopathy process [id number]-Vothshryuxcspwwdu, Complete Assessment & Plan Assessment & Plan (1) Nonischemic cardiomyopathy: Code(s): I42.8 - Other cardiomyopathies Category: Medical Plan: Nonischemic cardiomyopathy with mild LV systolic dysfunction current medical therapy with resolved heart failure syndrome. She is clinically doing well on current therapy. No signs or symptoms of heart failure. Does not require any loop diuretic therapy. Continue neurohormonal modulation with carvedilol, valsartan spironolactone. Has not tolerated Entresto therapy in the past. Importance of medical therapy was discussed. Encouraged to continue to participate in physical activity as tolerated. Advised to call me with new symptoms. (2) ICD (implantable cardioverter-defibrillator) in place: Comment: Subcutaneous ICD. Code(s): Z95.810 - Presence of automatic (implantable) cardiac defibrillator Category: Medical Plan: ICD in place, subcutaneous for primary prevention. ICD is working well. Recent battery change. Will continue monitor remotely. Will follow up in the clinic in 1 year's time after an echocardiogram. Thank you for allowing me to partake in his care Orders: Orders CA echo transthoracic complete 1 Year I42.8 - Other cardiomyopathies Coding Level of Care Code Est Pt Level 4 (35209) Diagnoses Nonischemic cardiomyopathy I42.8 ICD (implantable cardioverter-defibrillator) in place Z95.810 CPT Codes Cardiac Device Check - Cardiac Device 9: 60408-Hswftwk Device Interrogation, implantable defibrillator ([id number]) EKG - CPT: 92042-Uufyvkytqnhhgulam, Complete ([id number])
[2024-04-15 13:37] VITALS: BP 120/70; PULSE 68; BMI 25.8
== END 2024-04-15 15:07 | disposition home or self-care (01) ==
PROVIDERS: PCP Internal Medicine; Visit Provider Internal Medicine Cardiovascular Disease
DX: I42.8 Other cardiomyopathies (principal); Z95.810 Presence of automatic (implantable) cardiac defibrillator
CPT/HCPCS: 93260; 99214

== ENCOUNTER → 2024-04-15 13:07 | Outpatient (BNVA) | payer BC, SELFPAY | PROVIDERS: PCP Internal Medicine; Visit Provider Internal Medicine Cardiovascular Disease ==

== ENCOUNTER → 2024-04-15 23:59 | Outpatient (BNV) | payer BC, SELFPAY ==
--- NOTE | 2024-04-19 14:46 | A.OFFVIS_ITS ---
Intake Visit Reasons: Remote ICD Device Check - [employer] Allergies Entresto Adverse Reaction (Intermediate, Uncoded 02/28/24 06:38) Intolerance PFSH Medical History (Updated 04/15/24 @ 16:10 by Horace Ramos MD) Heart failure with reduced ejection fraction ICD (implantable cardioverter-defibrillator) in place Nonischemic cardiomyopathy Mitral regurgitation History of transesophageal echocardiography (KASHIF) Surgical History Hx of section History of permanent cardiac pacemaker placement Family History Father No problems noted. Mother Colon cancer Social History Alcohol intake: never Patient Tobacco Use Status: Never used Tobacco Office Procedures Cardiac Device Check Cardiac Device Check Details: Remote ICD report generated 04/15/2024. ICD function is adequate. Battery life is 99% 60607-Pdflgq Cardiac Interrogation, implant defibrillator w/interim Procedure code (CPT) selection complete Assessment & Plan Assessment & Plan (1) ICD (implantable cardioverter-defibrillator) in place: Comment: Subcutaneous ICD. Code(s): Z95.810 - Presence of automatic (implantable) cardiac defibrillator Category: Medical Plan: See above Coding Level of Care Code Procedure Only Diagnoses ICD (implantable cardioverter-defibrillator) in place Z95.810 CPT Codes Cardiac Device Check - Cardiac Device 13: 81726-Qhkjzf Cardiac Interrogation, implant defibrillator w/interim ([id number])
== END ==
PROVIDERS: PCP Internal Medicine; Visit Provider Internal Medicine Cardiovascular Disease
DX: Z45.02 Encounter for adjustment and management of automatic implantable cardiac defibrillator (principal)
CPT/HCPCS: 93295

== ENCOUNTER → 2024-07-16 23:59 | Outpatient (BNV) | payer BC, SELFPAY ==
--- NOTE | 2024-07-25 15:58 | MHC.OFFVIS ---
Intake Visit Reasons: Remote ICD check- [employer] Allergies Entresto Adverse Reaction (Intermediate, Uncoded 02/28/24 06:38) Intolerance PFSH Medical History (Updated 04/15/24 @ 16:10 by Horace Ramos MD) Heart failure with reduced ejection fraction ICD (implantable cardioverter-defibrillator) in place Nonischemic cardiomyopathy Mitral regurgitation History of transesophageal echocardiography (KASHIF) Surgical History Hx of section History of permanent cardiac pacemaker placement Family History Father No problems noted. Mother Colon cancer Social History Alcohol intake: never Patient Tobacco Use Status: Never used Tobacco Office Procedures Cardiac Device Check Cardiac Device Check Details: Remote ICD report generated 07/16/2024. ICD function is adequate. Battery life at 96% 70399-Xscibc Cardiac Interrogation, implant defibrillator w/interim Procedure code (CPT) selection complete Assessment & Plan Assessment & Plan (1) ICD (implantable cardioverter-defibrillator) in place: Comment: Subcutaneous ICD. Code(s): Z95.810 - Presence of automatic (implantable) cardiac defibrillator Category: Medical Plan: See above Coding Level of Care Code Procedure Only Diagnoses ICD (implantable cardioverter-defibrillator) in place Z95.810 CPT Codes Cardiac Device Check - Cardiac Device 13: 95908-Lkguoq Cardiac Interrogation, implant defibrillator w/interim ([id number])
== END ==
PROVIDERS: PCP Internal Medicine; Visit Provider Internal Medicine Cardiovascular Disease
DX: Z45.02 Encounter for adjustment and management of automatic implantable cardiac defibrillator (principal)
CPT/HCPCS: 93295

== ENCOUNTER → 2024-09-09 14:06 | Outpatient (BNVA) | payer BC, SELFPAY | PROVIDERS: PCP Internal Medicine | DX: I42.8 Other cardiomyopathies (principal); I34.0 Nonrheumatic mitral (valve) insufficiency; I50.9 Heart failure, unspecified; Z95.810 Presence of automatic (implantable) cardiac defibrillator; Z79.899 Other long term (current) drug therapy | CPT/HCPCS: 96127 ==

== ENCOUNTER 2024-10-07 07:05 | Outpatient (REF) | payer BC, SELFPAY ==
[2024-10-07 08:01] LABS: Basophils Absolute Auto 0.1 X10*3/uL (0.0-0.2); Basophils Percent Auto 1.2 % (0-2); Eosinophils Absolute Auto 0.6 X10*3/uL (0.0-0.4); Eosinophils Percent Auto 14.3 % (0-4); Hematocrit 35.9 % (37.0-47.0); Imm Gran Abs Auto 0.01 X10*3/uL (0.00-0.03); Imm Gran Pct Auto 0.2 % (0.0-0.4); Lymphocytes Absolute Auto 2.1 X10*3/uL (1.2-4.9); Lymphocytes Percent Auto 50.6 % (20-40); MANUAL DIFF FLAG SCAN; Mean Corpuscular HGB Conc 33.4 g/dl (31.0-35.0); Mean Corpuscular Hemoglobin 27.6 pg (27.0-33.0); Mean Corpuscular Volume 82.7 fL (80.0-98.0); Mean Platelet Volume 10.6 fL (9.4-12.3); Monocytes Absolute Auto 0.5 X10*3/uL (0.1-1.2); Monocytes Percent Auto 11.4 % (2-11); Neutrophils Absolute Auto 0.9 x10*3/uL (2.0-8.3); Neutrophils Percent Auto 22.3 % (45-73); Platelet Count 209 X10*3/uL (160-400); Red Blood Count 4.34 X10*6/uL (4.20-5.50); Red Cell Distribution Width 11.9 % (11.0-16.0); SCAN SMEAR FLAG 1; White Blood Count 4.2 X10*3/uL (4.8-10.8)
[2024-10-07 08:04] LABS: Appearance Urine Cloudy; Color Urine Yellow; Glucose Urine UA Negative (Negative); Leukocyte Esterase Urine Trace (Negative); Nitrite Urine Negative (Negative); PH 5.5 (5.0-9.0); Specific Gravity - Urine 1.015 (1.005-1.025); UMIC TRIGGER UACC YES; Urine Blood Negative (Negative); Urine Ketones Negative (Negative); Urine Protein Negative (Neg-Trace)
[2024-10-07 08:09] LABS: Bacteria Urine Trace (None Seen); Hyaline Casts Urine 0-2 /LPF (0-2); RBC Urine 0-2 /HPF (0-2); UACC Culture Trigger YES
[2024-10-07 08:24] LABS: SLIDE REVIEW VERIFIED
[2024-10-07 08:27] LABS: B Type Natriuretic Peptide < 10 pg/mL (<100)
[2024-10-07 08:32] LABS: Alanine Aminotransferase 17 U/L (0-31); Albumin Level 4.3 g/dL (3.5-5.0); Alkaline Phosphatase 51 U/L (39-117); Anion Gap 11 (12-20); Aspartate Amino Transferase 21 U/L (5-31); Bilirubin Total 1.3 mg/dL (0.0-1.0); Blood Urea Nitrogen 14 mg/dL (9-16); Carbon Dioxide 27 mmol/L (22-29); Chloride 109 mmol/L (96-108); Cholesterol 277 mg/dL (<200); Estimated Glomerular Filt Rate 56; Glucose Fasting 94 mg/dL (60-99); HDL Cholesterol 72 mg/dL (>40); LDL Cholesterol Calculated 188 mg/dL (<100); Potassium 3.6 mmol/L (3.3-5.1); Sodium 143 mmol/L (135-145); Total Protein 8.3 g/dL (6.5-8.0); Triglycerides 86 mg/dL (<150)
[2024-10-07 08:48] LABS: TSH reflex Free T4 2.22 uIU/mL (0.32-4.0); Vitamin D 25-OH Total 42.4 ng/mL (>30)
== END 2024-10-07 07:06 | disposition home or self-care (01) ==
LOC: HO.LAB 07:05
DX: Z00.00 Encounter for general adult medical examination without abnormal findings (principal); I34.0 Nonrheumatic mitral (valve) insufficiency; I42.8 Other cardiomyopathies; Z95.810 Presence of automatic (implantable) cardiac defibrillator; Z13.6 Encounter for screening for cardiovascular disorders
CPT/HCPCS: 36415; 80053; 80061; 81001; 81003; 82306; 83880; 84443; 85025; 87086

== ENCOUNTER 2024-10-08 13:23 | Outpatient (AMB) | payer BC, SELFPAY ==
[2024-10-08 13:33] VITALS: BP 96/70; PULSE 73; RESP 16; TEMP 36.8; O2SAT 97; BMI 25.8
--- NOTE | 2024-10-08 13:33 | MHC.PC.OV ---
Vital Signs 10/08/24 13:33 Height 5 ft 2 in Weight 141 lb 3.2 oz BMI 25.8 BP 96/70 Blood Pressure Location Lt brachial Position Sitting Respiration 16 Pulse 73 Pulse Source Pulse Oximeter Temp 98.3 F Temp Source Oral Pulse Oximetry (%) 97 Oxygen Delivery Method Room Air Intake Visit Reasons: Annual Exam Fluorescent Lighting Model Maker Required: No Accompanied by: Self / Same As Patient Allergies Entresto Adverse Reaction (Intermediate, Uncoded 10/08/24 13:41) Intolerance Medication List - Last Reconciled 10/08/24 by DANNA Mckee carvedilol 25 mg PO BID spironolactone 25 mg PO DAILY valsartan 160 mg PO BID Tobacco use date assessed: 10/08/24 Dental Screening Dental Screen Date: 10/08/24 Did you have a dental visit in the last 12 months?: Yes Did you have a dental problem in the last 6 months where you did not have access to dental care?: No Was dental information given to patient?: Patient has dentist HPI Annual Exam HPI Details Dentist: up to date Eye: Snellen: Right: Left: Corrected vision: no -will make appt STI screening: Colonoscopy: was referred on previous visit Pap Smer: up to date mammogram: up to date PHQ-9: Flu: up to date COVID: x2, no booster Tdap: will be given in office today Diet: regular Exercise: will be start [facility] Medical History (Updated 10/08/24 @ 14:08 by DANNA Mckee) Heart failure with reduced ejection fraction ICD (implantable cardioverter-defibrillator) in place Nonischemic cardiomyopathy Mitral regurgitation History of transesophageal echocardiography (KASHIF) Surgical History Hx of section History of permanent cardiac pacemaker placement Family History Father No problems noted. 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 1. Little interest or pleasure in doing things: not at all 2. Feeling down, depressed, or hopeless: not at all 3. Trouble falling or staying asleep, or sleeping too much: not at all 4. Feeling tired or having little energy: not at all 5. Poor appetite or overeating: not at all 6. Feeling bad about yourself - or that you are a failure or have let yourself or your family down: not at all 7. Trouble concentrating on things, such as reading the newspaper or watching television: not at all 8. Moving or speaking so slowly that other people could have noticed. Or the opposite - being so fidgety or restless that you have been moving around a lot more than usual: not at all 9. Thoughts that you would be better off or of hurting yourself in some way: not at all Total score: 0 Depression Screening Interpretation: Negative Depression Screening Done: Yes 90430 - PHQ-9 Billing: Yes Source: Developed by Drs. Lennox Samaniego, Sia Mcdowell, Micha Torres and colleagues, with an educational george from [employer]. Thrive Questionnaire Date Thrive assessed: 10/08/24 I am a: Patient What is your living situation today?: I have a steady place to live Within the past 12 months, did the food you bought not last and you didn't have the money to get more?: Never true Within the past 12 months, did you worry whether your food would run out before you got money to buy more?: Never true Do you have trouble paying for medicines?: No Do you have trouble getting transportation to medical appointments?: No Do you have trouble paying your heating and electricity bill?: No Do you have trouble taking care of your child, family member or friend?: No Do you have trouble with day-to-day activities such as bathing, preparing meals, shopping, managing finances, etc.?: No Are you currently unemployed and looking for a job?: No Are you interested in more education?: No Please select the resources that you would like help with: None Currently or been in a relationship where the following occur: No concerns reported THRIVE Score: 0 AUDIT C Alcohol Use Questionnaire (AUDIT-C) 1. How often do you have a drink containing alcohol?: Never 3. How often do you have six or more drinks on one occasion?: Never Total Score: 0 Score Reviewed/Action Taken: Yes RUFINA-7 AMB Questionnaire RUFINA-7 Date RUFINA - 7 assessed: 10/08/24 Feeling nervous, anxious, or on edge: 0 = Not at all Not being able to stop or control worryin = Not at all Worrying too much about different things: 0 = Not at all Trouble relaxin = Not at all Being so restless that it is hard to sit still: 0 = Not at all Becoming easily annoyed or irritable: 0 = Not at all Feeling afraid as if something awful might happen: 0 = Not at all Total RUFINA-7 score (0-4 normal; 5-9 mild; 10-14 moderate; 15-21 severe): 0 Source: Developed by Drs. Lennox Samaniego, Sia Mcdowell, Micha Torres and colleagues, with an educational george from [employer]. RUFINA-7 Assessment Billing RUFINA-7 Assessment Tool: RUFINA-7 Assessment 46833 Physical exam (Primary Care) Vital Signs: Last Vital Signs Temp 98.3 F 10/08/24 13:33 Pulse 73 10/08/24 13:33 Resp 16 10/08/24 13:33 BP 96/70 10/08/24 13:33 Pulse Ox 97 10/08/24 13:33 Oxygen Delivery Method Room Air 10/08/24 13:33 BMI result Body Mass Index 25.8 Tobacco/Smoking Status: Tobacco use Status Tobacco use date assessed 10/08/24 10/08/24 13:41 Patient Tobacco Use Status Never used Tobacco 10/08/24 13:41 e-Cigarette/Vaping Use Never Used 10/08/24 13:41 PHQ-9: PHQ-9 Score PHQ-9: Total score 0 10/08/24 13:42 Depression Screening Interpretation: Negative Thrive Assessment: Date of Thrive Assessment Date Thrive assessed 10/08/24 10/08/24 13:41 Currently or been in a relationship where the following occur: No concerns reported Immunizations Boostrix Tdap 2.5 Lf unit-8 mcg-5 Lf/0.5 mL intramuscular syringe Performing Provider: DANNA Mckee Performing Location: [facility] [facility] Administered by: JANNY Iyer on 10/08/24 14:18 Dose Route Admin Location Dispensed Lot Number Expiration Date NDC St[employer] Machine Tender Helper 0.5 mL IM Left Deltoid 0.5 mL [id number] 11/16/26 17254-105-14 [employer] VIS Given Date VIS Provided VIS Publication Date 10/08/24 Single Vaccine 21 Eligibility Eligibility Date Funding Source Not VF Eligible 10/08/24 Private Coding Additional Codes RUFINA-7 Assessment Billing - RUFINA-7 Assessment Tool: RUFINA-7 Assessment 75971 ([id number]) PHQ-9 - 94110 - PHQ-9 Billing: Yes ([id number]) Assessment & Plan Assessment & Plan Orders: Orders Comprehensive [place]. Panel Fast 3 Months E78.00 - Pure hypercholesterolemia, unspecified, I34.0 - Nonrheumatic mitral (valve) insufficiency, I42.8 - Other cardiomyopathies, Z95.810 - Presence of automatic (implantable) cardiac defibrillator Complete Blood Count Auto Diff 3 Months E78.00 - Pure hypercholesterolemia, unspecified, I34.0 - Nonrheumatic mitral (valve) insufficiency, I42.8 - Other cardiomyopathies, Z95.810 - Presence of automatic (implantable) cardiac defibrillator Lipid Panel 3 Months E78.00 - Pure hypercholesterolemia, unspecified, I34.0 - Nonrheumatic mitral (valve) insufficiency, I42.8 - Other cardiomyopathies, Z95.810 - Presence of automatic (implantable) cardiac defibrillator Vitamin D 25-OH Total 3 Months E78.00 - Pure hypercholesterolemia, unspecified, I34.0 - Nonrheumatic mitral (valve) insufficiency, I42.8 - Other cardiomyopathies, Z95.810 - Presence of automatic (implantable) cardiac defibrillator TSH reflex Free T4 3 Months E78.00 - Pure hypercholesterolemia, unspecified, I34.0 - Nonrheumatic mitral (valve) insufficiency, I42.8 - Other cardiomyopathies, Z95.810 - Presence of automatic (implantable) cardiac defibrillator TDaP Immunization Today Z23 - Encounter for immunization UA CC w/rflx Micro + Cult 3 Months E78.00 - Pure hypercholesterolemia, unspecified, I34.0 - Nonrheumatic mitral (valve) insufficiency, I42.8 - Other cardiomyopathies, Z95.810 - Presence of automatic (implantable) cardiac defibrillator Glucose Fasting 3 Months E78.00 - Pure hypercholesterolemia, unspecified, I34.0 - Nonrheumatic mitral (valve) insufficiency, I42.8 - Other cardiomyopathies, Z95.810 - Presence of automatic (implantable) cardiac defibrillator Complete Blood Count Auto Diff 4 Weeks D72.9 - Disorder of white blood cells, unspecified Medications: New atorvastatin 10 mg PO BEDTIME 90 tabs 3RF 3 months E78.00 - Pure hypercholesterolemia, unspecified, I34.0 - Nonrheumatic mitral (valve) insufficiency, I42.8 - Other cardiomyopathies Boostrix Tdap (diphth,pertus(acell),tetanus) 0.5 mL IM ONCE 0.5 mL 0RF NS Z23 - Encounter for immunization
== END 2024-10-08 14:20 | disposition home or self-care (01) ==
LOC: HO.HMCH 13:24
DX: Z23 Encounter for immunization (principal)

== ENCOUNTER → 2024-10-08 13:23 | Outpatient (BNVA) | payer BC, SELFPAY | DX: Z00.00 Encounter for general adult medical examination without abnormal findings (principal); Z23 Encounter for immunization; I42.8 Other cardiomyopathies; I34.0 Nonrheumatic mitral (valve) insufficiency; D72.9 Disorder of white blood cells, unspecified; E78.00 Pure hypercholesterolemia, unspecified; I50.9 Heart failure, unspecified; Z79.899 Other long term (current) drug therapy; Z95.810 Presence of automatic (implantable) cardiac defibrillator | CPT/HCPCS: 90471; 90715; 96127 ==

== ENCOUNTER → 2025-01-13 23:59 | Outpatient (BNV) | payer BC, SELFPAY ==
--- NOTE | 2025-01-14 10:25 | MHC.OFFVIS ---
Intake Visit Reasons: Remote ICD check- [employer] Allergies Entresto Adverse Reaction (Intermediate, Uncoded 10/08/24 13:41) Intolerance PFSH Medical History (Updated 10/08/24 @ 14:08 by DANNA Mckee) Heart failure with reduced ejection fraction ICD (implantable cardioverter-defibrillator) in place Nonischemic cardiomyopathy Mitral regurgitation History of transesophageal echocardiography (KASHIF) Surgical History Hx of section History of permanent cardiac pacemaker placement Family History Father No problems noted. 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 ICD function is adequate. No arrhythmias detected [id number] Cardiac Interrogation, implant defibrillator w/interim Procedure code (CPT) selection complete Assessment & Plan Assessment & Plan (1) ICD (implantable cardioverter-defibrillator) in place: Comment: Subcutaneous ICD. Code(s): Z95.810 - Presence of automatic (implantable) cardiac defibrillator Category: Medical Plan: See above Coding Level of Care Code Procedure Only Diagnoses ICD (implantable cardioverter-defibrillator) in place Z95.810 CPT Codes Cardiac Device Check - Cardiac Device 13: [id number] Cardiac Interrogation, implant defibrillator w/interim ([id number])
== END ==
PROVIDERS: Visit Provider Internal Medicine Cardiovascular Disease
DX: Z45.02 Encounter for adjustment and management of automatic implantable cardiac defibrillator (principal)
CPT/HCPCS: 93295

== ENCOUNTER 2025-01-14 07:46 | Outpatient (REF) | payer BC, SELFPAY ==
[2025-01-14 08:01] LABS: MANUAL DIFF FLAG NO
[2025-01-14 08:07] LABS: Basophils Percent Auto 0.9 % (0-2); Eosinophils Absolute Auto 0.6 X10*3/uL (0.0-0.4); Eosinophils Percent Auto 14.3 % (0-4); Hematocrit 35.7 % (37.0-47.0); Hemoglobin 11.9 g/dl (12.0-16.0); Imm Gran Abs Auto 0.01 X10*3/uL (0.00-0.03); Imm Gran Pct Auto 0.2 % (0.0-0.4); Lymphocytes Absolute Auto 2.1 X10*3/uL (1.2-4.9); Lymphocytes Percent Auto 47.5 % (20-40); Mean Corpuscular HGB Conc 33.3 g/dl (31.0-35.0); Mean Corpuscular Hemoglobin 28.1 pg (27.0-33.0); Mean Corpuscular Volume 84.2 fL (80.0-98.0); Mean Platelet Volume 9.7 fL (9.4-12.3); Monocytes Absolute Auto 0.5 X10*3/uL (0.1-1.2); Monocytes Percent Auto 10.7 % (2-11); Neutrophils Absolute Auto 1.2 x10*3/uL (2.0-8.3); Neutrophils Percent Auto 26.4 % (45-73); Platelet Count 182 X10*3/uL (160-400); Red Blood Count 4.24 X10*6/uL (4.20-5.50); Red Cell Distribution Width 12.4 % (11.0-16.0); White Blood Count 4.5 X10*3/uL (4.8-10.8)
[2025-01-14 08:40] LABS: Appearance Urine Clear; Color Urine Yellow; Glucose Urine UA Negative (Negative); Leukocyte Esterase Urine Negative (Negative); Nitrite Urine Negative (Negative); PH 7.5 (5.0-9.0); Specific Gravity - Urine 1.015 (1.005-1.025); Urine Blood Negative (Negative); Urine Ketones Negative (Negative); Urine Protein Negative (Neg-Trace)
[2025-01-14 08:41] LABS: Alanine Aminotransferase 22 U/L (0-31); Albumin Level 4.3 g/dL (3.5-5.0); Alkaline Phosphatase 57 U/L (39-117); Anion Gap 10 (12-20); Aspartate Amino Transferase 35 U/L (5-31); Bilirubin Total 1.3 mg/dL (0.0-1.0); Blood Urea Nitrogen 9 mg/dL (9-16); Calcium 9.7 mg/dL (8.4-10.2); Carbon Dioxide 28 mmol/L (22-29); Chloride 108 mmol/L (96-108); Cholesterol 205 mg/dL (<200); Estimated Glomerular Filt Rate > 60; Glucose Fasting 100 mg/dL (60-99); HDL Cholesterol 77 mg/dL (>40); LDL Cholesterol Calculated 115 mg/dL (<100); Potassium 4.2 mmol/L (3.3-5.1); Sodium 142 mmol/L (135-145); Total Protein 7.4 g/dL (6.5-8.0); Triglycerides 66 mg/dL (<150)
[2025-01-14 09:01] LABS: TSH reflex Free T4 2.86 uIU/mL (0.32-4.0)
== END 2025-01-14 07:47 | disposition home or self-care (01) ==
LOC: HO.LAB 07:46
DX: E78.00 Pure hypercholesterolemia, unspecified (principal); Z95.810 Presence of automatic (implantable) cardiac defibrillator; I34.0 Nonrheumatic mitral (valve) insufficiency; I42.8 Other cardiomyopathies; D72.9 Disorder of white blood cells, unspecified
CPT/HCPCS: 36415; 80053; 80061; 81003; 82306; 84443; 85025

== ENCOUNTER → 2025-01-29 23:59 | Outpatient (BNV) | payer BC, SELFPAY ==
--- NOTE | 2025-02-03 13:35 | MHC.OFFVIS ---
Intake Visit Reasons: Remote ICD check- [employer] Allergies Entresto Adverse Reaction (Intermediate, Uncoded 10/08/24 13:41) Intolerance PFSH Medical History (Updated 10/08/24 @ 14:08 by DANNA Mckee) Heart failure with reduced ejection fraction ICD (implantable cardioverter-defibrillator) in place Nonischemic cardiomyopathy Mitral regurgitation History of transesophageal echocardiography (KASHIF) Surgical History Hx of section History of permanent cardiac pacemaker placement Family History Father No problems noted. 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 ICD function is adequate. Battery life at 91% with good sensing configuration. No arrhythmias noted [id number] Cardiac Interrogation, implant defibrillator w/interim Procedure code (CPT) selection complete Assessment & Plan Assessment & Plan (1) ICD (implantable cardioverter-defibrillator) in place: Comment: Subcutaneous ICD. Code(s): Z95.810 - Presence of automatic (implantable) cardiac defibrillator Category: Medical Plan: See above Coding Level of Care Code Procedure Only Diagnoses ICD (implantable cardioverter-defibrillator) in place Z95.810 CPT Codes Cardiac Device Check - Cardiac Device 13: [id number] Cardiac Interrogation, implant defibrillator w/interim ([id number])
== END ==
PROVIDERS: Visit Provider Internal Medicine Cardiovascular Disease
DX: Z45.02 Encounter for adjustment and management of automatic implantable cardiac defibrillator (principal)
CPT/HCPCS: 93295

== ENCOUNTER 2025-02-26 09:15 | Outpatient (AMB) | payer BC, SELFPAY ==
--- NOTE | 2025-02-26 09:17 | MHC.OFFVIS ---
Vital Signs 02/26/25 09:22 Height 5 ft 2 in Weight 148 lb BMI 27.1 BP 98/64 Blood Pressure Location Rt brachial Position Sitting Pulse 68 Pulse Source Pulse Oximeter Pulse Oximetry (%) 99 Oxygen Delivery Method Room Air Intake Visit Reasons: colo screening Intake Note: New pt for recall colo screening. FMHx (mother). Last was with Bianca over 10 years ago. Hyperplastic polypectomy x3. CC; Pt denies any GI sx or concerns at this time. Wire Brusher Required: No Accompanied by: Self / Same As Patient Allergies Entresto Adverse Reaction (Intermediate, Uncoded 10/08/24 13:41) Intolerance HPI HPI colo screening: Details: 50 year old? female with past medical history of hypercholesteremia, Congestive heart failure, ICD, nonischemic cardiomyopathy, mitral valve regurgitation is here today for pre colonoscopy screening.? Patient was sent to us by her PCP.? Colonoscopy over 10 years ago with hyperplastic polyps.? Patient denies any gastrointestinal symptoms in the past or at present.? Denies any personal or family history of gastrointestinal disease, colon polyps, or CRC.? Patient's mom was diagnosed with colorectal cancer. ? Negative for history of sleep apnea.? Denies any history of renal, pulmonary, or hepatic disease.?? History of cardiomyopathy, Congestive heart failure, ICD, mitral valve regurgitation. Patient has echo in the beginning of March and then follow-up appointment with Cardiology. Will send a message to get cleared before procedure. No history of infectious? diseases like hepatitis A, B, C, HIV or tuberculosis.? Patient is not on any anticoagulation medication [facility] Medical History Heart failure with reduced ejection fraction ICD (implantable cardioverter-defibrillator) in place Nonischemic cardiomyopathy Mitral regurgitation History of transesophageal echocardiography (KASHIF) Surgical History (Updated 02/26/25 @ 09:25 by VANESSA Huang) Hx of colonoscopy Hx of section History of permanent cardiac pacemaker placement Family History Father No problems noted. 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 Current occupational exposures/hazards: No Cognitive needs: No Hearing needs: No Vision needs: No Review of Systems Const Denies weight gain and Denies weight loss ENT Reports no additional complaints, Denies dysphagia and Denies odynophagia Card Reports no additional complaints Resp Reports no additional complaints GI Denies abdominal pain, Denies belching, Denies melena, Denies bloating, Denies change in bowel habits, Denies dysphagia, Denies excessive flatus, Denies dyspepsia, Denies heartburn, Denies diarrhea, Denies loose stools, Denies nausea, Denies odynophagia and Denies vomiting Musc Reports no additional complaints Neuro Reports no additional complaints Psych Reports no additional complaints Endo Reports no additional complaints Physical Exam Vital Signs: Last Vital Signs Pulse 68 02/26/25 09:22 BP 98/64 02/26/25 09:22 Pulse Ox 99 02/26/25 09:22 Oxygen Delivery Method Room Air 02/26/25 09:22 BMI result Body Mass Index 27.1 Const General: healthy appearing, no acute distress and well developed Nutritional Appearance: well nourished Orientation/consciousness: patient oriented x3 Resp Effort & Inspection: normal respiratory effort, able to speak in complete sentences, no tracheal deviation and symmetric chest movement Auscultation: clear to auscultation bilaterally Cardio Rate: regular rate GI Inspection: Yes normal to inspection and No distended Palpation (GI): Soft to palpation, not firm, nontender and No hepatosplenomegaly present Auscultation: normal bowel sounds General: Yes no CVA tenderness Back/Spine/Pelvis Back: no CVA tenderness Skin General skin exam: elasticity normal, turgor normal and dry skin Neuro General: patient oriented x3 Psych Appearance: grossly normal Mental Status: mental status grossly normal Assessment & Plan Assessment & Plan (1) Encounter for colorectal cancer screening: Code(s): Z12.11 - Encounter for screening for malignant neoplasm of colon; Z12.12 - Encounter for screening for malignant neoplasm of rectum Category: Medical Plan Patient denies any GI, cardiac or respiratory symptoms.? Denies any issues with anesthesia in the past.? Denies any history of sleep apnea.? No history infectious diseases in the past or present.? Not on any anticoagulation therapy.? No family or personal history of colon cancer. Cardiac history has appointment with cardiology in March will ask for clearance.? Patient denies melena, hematochezia, unintentional weight loss or ribbon like stools.? Discussed at length the pre-procedure,? prep, diet & medications as well as what to expect prior, during and after the procedure.?? Stressed the importance of good bowel prep.? Recommended the use of Vaseline or Calmoseptine OTC & baby wipes with bowel movements to promote comfort.? ?Patient verbalizes understanding and agrees to plan of care.? She was given the opportunity to ask questions and all questions answered.? We will see her after the procedure.? Medications: New bisacodyl (Dulcolax (bisacodyl)) take 4 tabs at noon the day before your colonoscopy 20 mg (4 x 5 mg) PO ONCE 4 tabs 0RF constipation 1 day Z12.11 - Encounter for screening for malignant neoplasm of colon polyethylene glycol 3350 (Miralax) As directed by gastroenterology department at [facility] 238 grams PO ONCE 238 grams 0RF Z12.11 - Encounter for screening for malignant neoplasm of colon Coding Level of Care Code New Pt Level 3 (86410) Diagnoses Encounter for colorectal cancer screening Z12.11; Z12.12 Time Spent (min) 40 Comment 30 minutes spent with patient and additional 10 minutes spent reviewing her records
[2025-02-26 09:22] VITALS: BP 98/64; PULSE 68; O2SAT 99; BMI 27.1
--- OUTSIDE RECORDS SUMMARY | 2025-02-26 09:44 | XMS_ITS | Encounter Summary ---
Author Organization [facility] Address [address] [place] [phone] Phone Care Team Providers Care Display Designer Name Role Phone Lj Chester MD Primary Care Provider Unavail able Encounter Details Date Type Department Care Team (Late st Contact Info) Description 01/19/2017 Procedure [facility] [address] [place] [address] Social History Tobacco Use Types Packs/Day Years Used Date Smoking Tobacco: Never Comments Unknown Sex and Gender Information Value Date Recorded Sex Assigned at Not on file Legal Sex Female 2:20 PM EDT Gender Identity Not on file Sexual Orientation Not on file documented as of this encounter Plan of Treatment Not on file documented as of this encounter Visit Diagnoses Not on filedocumented in this encounter Additional Health Concerns Assessment Noted Time PHQ-2 Depression Total Score: 0 01/20/20 17 4:54 PM EDT documented as of this encounter Care Teams Display Designer Relationship Specialty Start Date End Date Lj Chester MD PCP - General Endocrinology 01/12/17 documented as of this encounter Additional Source Comments The information contained in this document represents components of the legal health record. It is not the complete legal health record.[facility]
== END 2025-02-26 09:38 | disposition home or self-care (01) ==
LOC: HO.HGI 09:16
PROVIDERS: Visit Provider Nurse Practitioner Family
DX: Z01.818 Encounter for other preprocedural examination (principal); Z12.11 Encounter for screening for malignant neoplasm of colon; Z12.12 Encounter for screening for malignant neoplasm of rectum; Z86.0102 Personal history of hyperplastic colon polyps
CPT/HCPCS: S0285

== ENCOUNTER 2025-03-05 15:54 | Outpatient (AMB) | payer BC, SELFPAY ==
[2025-03-05 15:59] VITALS: BP 90/60; PULSE 64; RESP 18; TEMP 36.2; O2SAT 96; BMI 27.5
--- NOTE | 2025-03-05 15:59 | MHC.PC.OV ---
Vital Signs 03/05/25 15:59 Height 5 ft 2 in Weight 150 lb 6 oz BMI 27.5 BP 90/60 Blood Pressure Location Lt brachial Position Sitting Respiration 18 Pulse 64 Pulse Source Pulse Oximeter Temp 97.1 F Temp Source Temporal Artery Scan Pulse Oximetry (%) 96 Oxygen Delivery Method Room Air Intake Visit Reasons: 3M follow up Manager Athletics Required: No Accompanied by: Self / Same As Patient Allergies Entresto Adverse Reaction (Intermediate, Uncoded 03/05/25 16:55) Intolerance Medication List - Last Reconciled 03/05/25 by DANNA Mckee bisacodyl (Dulcolax (bisacodyl)) 20 mg (4 x 5 mg) PO ONCE 1 day carvedilol 25 mg PO BID polyethylene glycol 3350 (Miralax) 238 grams PO ONCE spironolactone 25 mg PO DAILY valsartan 160 mg PO BID Tobacco use date assessed: 03/05/25 Dental Screening Dental Screen Date: 03/05/25 Did you have a dental visit in the last 12 months?: Yes Did you have a dental problem in the last 6 months where you did not have access to dental care?: No Was dental information given to patient?: Patient has dentist HPI 3M follow up HPI Details The patient is a 50-year-old female presenting for a follow-up on her chronic conditions, including anemia and hyperlipidemia. The patient has a history of anemia, with her blood count remaining slightly low but stable, indicating a chronic condition that is not in a critical range. She has been advised that the condition is stable and does not require immediate intervention. The patient also has hyperlipidemia, for which she has been taking Lipitor. Her LDL cholesterol has decreased significantly from 188 mg/dL to 115 mg/dL, and her total cholesterol has improved from 277 mg/dL to 205 mg/dL. The patient reports no side effects from the medication and is advised to continue it to further lower her LDL cholesterol closer to 70 mg/dL. The patient has slightly elevated liver function tests, which are being monitored. The elevation is not significant enough to warrant stopping Lipitor unless it increases further. [facility] Medical History Heart failure with reduced ejection fraction ICD (implantable cardioverter-defibrillator) in place Nonischemic cardiomyopathy Mitral regurgitation History of transesophageal echocardiography (KASHIF) Surgical History Hx of colonoscopy Hx of section History of permanent cardiac pacemaker placement Family History Father No problems noted. 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 1. Little interest or pleasure in doing things: not at all 2. Feeling down, depressed, or hopeless: not at all 3. Trouble falling or staying asleep, or sleeping too much: not at all 4. Feeling tired or having little energy: not at all 5. Poor appetite or overeating: not at all 6. Feeling bad about yourself - or that you are a failure or have let yourself or your family down: not at all 7. Trouble concentrating on things, such as reading the newspaper or watching television: not at all 8. Moving or speaking so slowly that other people could have noticed. Or the opposite - being so fidgety or restless that you have been moving around a lot more than usual: not at all 9. Thoughts that you would be better off or of hurting yourself in some way: not at all Total score: 0 Depression Screening Interpretation: Negative Depression Screening Done: Yes Source: Developed by Drs. Lennox Samaniego, Sia Mcdowell, Micha Torres and colleagues, with an educational george from [employer]. Thrive Questionnaire Date Thrive assessed: 03/05/25 I am a: Patient What is your living situation today?: I have a steady place to live Within the past 12 months, did the food you bought not last and you didn't have the money to get more?: Never true Within the past 12 months, did you worry whether your food would run out before you got money to buy more?: Never true Do you have trouble paying for medicines?: No Do you have trouble getting transportation to medical appointments?: No Do you have trouble paying your heating and electricity bill?: No Do you have trouble taking care of your child, family member or friend?: No Do you have trouble with day-to-day activities such as bathing, preparing meals, shopping, managing finances, etc.?: No Are you currently unemployed and looking for a job?: No Are you interested in more education?: No Please select the resources that you would like help with: None Currently or been in a relationship where the following occur: No concerns reported THRIVE Score: 0 AUDIT C Alcohol Use Questionnaire (AUDIT-C) 1. How often do you have a drink containing alcohol?: Never 3. How often do you have six or more drinks on one occasion?: Never Total Score: 0 RUFINA-7 AMB Questionnaire RUFINA-7 Date RUFINA - 7 assessed: 03/05/25 Feeling nervous, anxious, or on edge: 0 = Not at all Not being able to stop or control worryin = Not at all Worrying too much about different things: 0 = Not at all Trouble relaxin = Not at all Being so restless that it is hard to sit still: 0 = Not at all Becoming easily annoyed or irritable: 0 = Not at all Feeling afraid as if something awful might happen: 0 = Not at all Total RUFINA-7 score (0-4 normal; 5-9 mild; 10-14 moderate; 15-21 severe): 0 Source: Developed by Drs. Lennox Samaniego, Sia Mcdowell, Micha Torres and colleagues, with an educational george from [employer]. Review of Systems Const Denies body aches, Denies chills, Denies fever(s), Denies headache(s) and Denies poor appetite Eyes Reports no additional complaints ENT Denies dysphagia, Denies dizziness, Denies headache(s) and Denies odynophagia Card Denies chest pain, Denies syncope, Denies edema, Denies irregular heart rhythm, Denies lightheadedness and Denies dyspnea Resp Denies cough and Denies dyspnea GI Denies abdominal pain, Denies constipation, Denies dysphagia, Denies diarrhea, Denies nausea, Denies odynophagia and Denies vomiting Reports no additional complaints Musc Reports no additional complaints and Denies abnormal gait Skin/Breast Reports system reviewed and no additional complaints, except as documented Neuro Denies abnormal gait, Denies dizziness, Denies syncope and Denies headache(s) Psych Reports no additional complaints Physical exam (Primary Care) Vital Signs: Last Vital Signs Temp 97.1 F 03/05/25 15:59 Pulse 64 03/05/25 15:59 Resp 18 03/05/25 15:59 BP 90/60 03/05/25 15:59 Pulse Ox 96 03/05/25 15:59 Oxygen Delivery Method Room Air 03/05/25 15:59 BMI result Body Mass Index 27.5 Tobacco/Smoking Status: Tobacco use Status Tobacco use date assessed 03/05/25 03/05/25 16:01 Patient Tobacco Use Status Never used Tobacco 03/05/25 16:01 e-Cigarette/Vaping Use Never Used 03/05/25 16:01 PHQ-9: PHQ-9 Score PHQ-9: Total score 0 03/05/25 17:08 Depression Screening Interpretation: Negative Thrive Assessment: Date of Thrive Assessment Date Thrive assessed 03/05/25 03/05/25 16:01 Currently or been in a relationship where the following occur: No concerns reported Const General: cooperative, healthy appearing, comfortable and no acute distress Orientation/consciousness: patient oriented x3 HENMT Head: Yes normocephalic Ears: hearing grossly normal bilaterally General nose exam: Normal external nose present Eyes General: appearance normal, both eyes and all related structures Conjunctivae: conjunctivae normal Neck Neck: Yes full ROM and Yes no lymphadenopathy Resp Effort & Inspection: normal respiratory effort Auscultation: clear to auscultation bilaterally, no crackles, no rales, no rhonchi and no wheezes Cardio Rate: regular rate Rhythm: regular rhythm Skin General skin exam: no rashes or lesions noted Neuro General: patient oriented x3 Gait exam (Neuro): Normal gait present Extrem General: Yes normal to inspection, Yes full ROM and No edema Psych Affect: normal affect Attitude: cooperative Insight: Good insight present (Psych) Judgement: Good judgement present (Psych) Results Reviewed Results Reviewed: Laboratory Tests 01/14/25 01/14/25 07:57 07:58 WBC 4.5 L RBC 4.24 Hgb 11.9 L Hct 35.7 L MCV 84.2 MCH 28.1 MCHC 33.3 RDW 12.4 Plt Count 182 Sodium 142 Potassium 4.2 Chloride 108 Carbon Dioxide 28 Anion Gap 10 L BUN 9 Creatinine 0.95 Estim Creat Clear Calc Not Reportable Estimated GFR > 60 Fasting Glucose 100 H Calcium 9.7 Total Bilirubin 1.3 H AST 35 H ALT 22 Alkaline Phosphatase 57 Total Protein 7.4 Albumin 4.3 Triglycerides 66 Cholesterol 205 H LDL Cholesterol, Calc 115 H HDL Cholesterol 77 25-OH Vitamin D Total 40.0 TSH 2.86 Urine Color Yellow Urine Appearance Clear Urine pH 7.5 Ur Specific [place] 1.015 Urine Protein Negative Urine Glucose (UA) Negative Urine Ketones Negative Urine Blood Negative Urine Nitrite Negative Ur Leukocyte Esterase Negative Coding Level of Care Code Est Pt Level 3 (71590) Diagnoses ICD (implantable cardioverter-defibrillator) in place Z95.810 Nonischemic cardiomyopathy I42.8 Mitral valve insufficiency, unspecified etiology I34.0 Cardiac valve disease etiology: etiology unspecified Abnormal white blood cell count D72.9 High cholesterol E78.00 Congestive heart failure, unspecified HF chronicity, unspecified heart failure type I50.9 Heart failure type: unspecified Heart failure chronicity: unspecified Anemia, unspecified type D64.9 Anemia type: unspecified type Elevated AST (SGOT) R74.01 Leukopenia, unspecified type D72.819 Leukopenia type: unspecified Time Spent (min) 34 Assessment & Plan Assessment & Plan (1) ICD (implantable cardioverter-defibrillator) in place: Comment: Subcutaneous ICD. Code(s): Z95.810 - Presence of automatic (implantable) cardiac defibrillator Category: Medical Plan: Subcutaneous ICD placed in 2018. Followed by Cardiology (every six-months) (2) Nonischemic cardiomyopathy: Code(s): I42.8 - Other cardiomyopathies Category: Medical Plan: Abnormal EKG status post subcutaneous ICD in 2018 Follow up with Cardiology as scheduled (3) Mitral regurgitation: Code(s): I34.0 - Nonrheumatic mitral (valve) insufficiency Category: Medical Qualifiers: Cardiac valve disease etiology: etiology unspecified Qualified Code(s): I34.0 - Nonrheumatic mitral (valve) insufficiency Plan: Follow up with Cardiology as scheduled (4) Abnormal white blood cell count: Code(s): D72.9 - Disorder of white blood cells, unspecified Category: Medical (5) High cholesterol: Code(s): E78.00 - Pure hypercholesterolemia, unspecified Category: Medical Plan: Triglycerides 66, total cholesterol decreased from 277 to 205, LDL from 188 to 115 Discussed lifestyle modifications including dietary changes and physical activity Continue atorvastatin 10 mg q bedtime Will recheck lipid panel in 3 months (6) CHF (congestive heart failure): Code(s): I50.9 - Heart failure, unspecified Category: Medical Qualifiers: Heart failure type: unspecified Heart failure chronicity: unspecified Qualified Code(s): I50.9 - Heart failure, unspecified Plan: Continue carvedilol 25 mg b.i.d., spironolactone 25 mg b.i.d., valsartan 160 mg b.i.d. Reinforced low-sodium diet and fluid restriction due to CHF Follow up with Cardiology as scheduled (7) Anemia: Code(s): D64.9 - Anemia, unspecified Category: Medical Qualifiers: Anemia type: unspecified type Qualified Code(s): D64.9 - Anemia, unspecified Plan: Patient has a normocytic, normochromic anemia. We will add an iron panel, B12 and folate on her follow up labs to further evaluate. (8) Elevated AST (SGOT): Code(s): R74.01 - Elevation of levels of liver transaminase levels Category: Medical Plan: Slightly elevated. 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 We will continue to monitor CBC Plan The patient to follow up in 3 months. Orders: Orders Comprehensive [place]. Panel Fast 3 Months I42.8 - Other cardiomyopathies, I50.9 - Heart failure, unspecified, I34.0 - Nonrheumatic mitral (valve) insufficiency, Z95.810 - Presence of automatic (implantable) cardiac defibrillator, E78.5 - Hyperlipidemia, unspecified UA CC w/rflx Micro + Cult 3 Months I42.8 - Other cardiomyopathies, I50.9 - Heart failure, unspecified, I34.0 - Nonrheumatic mitral (valve) insufficiency, Z95.810 - Presence of automatic (implantable) cardiac defibrillator, E78.5 - Hyperlipidemia, unspecified Lipid Panel 3 Months I42.8 - Other cardiomyopathies, I50.9 - Heart failure, unspecified, I34.0 - Nonrheumatic mitral (valve) insufficiency, Z95.810 - Presence of automatic (implantable) cardiac defibrillator, E78.5 - Hyperlipidemia, unspecified TSH reflex Free T4 3 Months I42.8 - Other cardiomyopathies, I50.9 - Heart failure, unspecified, I34.0 - Nonrheumatic mitral (valve) insufficiency, Z95.810 - Presence of automatic (implantable) cardiac defibrillator, E78.5 - Hyperlipidemia, unspecified Complete Blood Count Auto Diff 3 Months I42.8 - Other cardiomyopathies, I50.9 - Heart failure, unspecified, I34.0 - Nonrheumatic mitral (valve) insufficiency, Z95.810 - Presence of automatic (implantable) cardiac defibrillator, E78.5 - Hyperlipidemia, unspecified Medications: Refilled atorvastatin 10 mg PO BEDTIME 90 tabs 3RF 3 months E78.00 - Pure hypercholesterolemia, unspecified, I42.8 - Other cardiomyopathies, I34.0 - Nonrheumatic mitral (valve) insufficiency
--- OUTSIDE RECORDS SUMMARY | 2025-03-05 16:16 | XMS_ITS | Encounter Summary ---
Author Organization [facility] Address [address] [place] [id number] Phone Care Team Providers Care Salvager Helper Name Role Phone Lj Chester MD Primary Care Provider Unavail able Encounter Details Date Type Department Care Team (Late st Contact Info) Description 01/19/2017 Procedure Pass [facility] [address] [place] [address] Social History Tobacco Use Types Packs/Day Years [...] documented as of this encounter Care Teams Salvager Helper Relationship Specialty Start Date End Date Lj Chester MD PCP - General Endocrinology 01/12/17 documented as of this encounter Additional Source Comments The information contained in this document represents components of the legal health record. It is not the complete legal health record.[facility]
== END 2025-03-05 17:11 | disposition home or self-care (01) ==
LOC: HO.HMCH 15:55
DX: I50.9 Heart failure, unspecified (principal); I42.8 Other cardiomyopathies; Z95.810 Presence of automatic (implantable) cardiac defibrillator; I34.0 Nonrheumatic mitral (valve) insufficiency; D72.9 Disorder of white blood cells, unspecified; E78.00 Pure hypercholesterolemia, unspecified; D64.9 Anemia, unspecified; R74.01 Elevation of levels of liver transaminase levels; D72.819 Decreased white blood cell count, unspecified

== ENCOUNTER → 2025-04-08 08:47 | Outpatient (REF) | payer BC, SELFPAY ==
--- NOTE | 2025-04-08 08:49 | CA_ITS ---
Transthoracic Echocardiogram Patient (Last, First, Middle): Gracy Nice, Gender: F Date of : 1975 Age: 50 Procedure Date: 04/08/2025 Procedure Type: Transthoracic Echocardiogram Location: OP Height: 157. cm Weight: 63.5 kg BSA: 1.64 m2 Heart Rate: 59 bpm BP: 90 / 60 mmHg Lace Stripper: EHSAN Referring MD: Horace Ramos MD Manager Dental: Horace Ramos MD Symptoms: I42.8 - Other cardiomyopathies Study Quality: Adequate ECG Rhythm: Bradycardia Conclusions: - 1. Normal LV ejection fraction 55-60% 2. Mild mitral regurgitation 3. Normal RV systolic pressure 4. No gross pericardial effusion Findings Left Ventricle Normal left ventricular size, thickness, and systolic function. The visually estimated ejection fraction is between 55-60%. Spectral Doppler is indicative of a normal filling pattern. Right Ventricle Normal right ventricular cavity size and systolic function. Atria Both atria are normal in size. There is no evidence of interatrial shunt. Aortic Valve Normal aortic valve structure and function. There is no aortic valve stenosis. There is no aortic valve regurgitation. Mitral Valve Normal mitral valve structure and function. There is mild mitral valve regurgitation. There is no mitral valve stenosis. Pulmonic Valve The pulmonic valve is likely normal. Tricuspid Valve Normal tricuspid valve structure. There is trace tricuspid valve regurgitation. The right ventricular systolic pressure is normal. The right ventricular systolic pressure is 14 mmHg. Normal right atrial pressure. There is no evidence of pulmonary hypertension. Great Vessels All visible segments of the aorta are normal in size. The pulmonary artery was not well visualized. Venous The inferior vena cava is normal in size and collapses greater than 50% with inspiration. Pericardium/Pleural There is no evidence of pericardial effusion. Prior Study Comparison Changes noted compared to prior study dated: 02/02/2024. LV ejection fraction has normalized. Mild mitral regurgitation was noted Measurements 2D Linear Measurements IVSd: 0.61 0.6-0.9/0.6-1.0 cm LVIDd: 5.14 3.9-5.3/4.2-5.9 cm LVIDd Index: 3.13 2.4-3.2/2.2-3.1 cm/m2 LVIDs: 3.48 2.0-3.6 cm LVPWd: 0.63 0.7-1.1 cm LA Diam: 3.40 2.7-3.8/3.0-4.0 cm LAIDs Index: 2.07 1.5-2.3 cm/m2 LV Mass: 128.85 67-162/88-224 g LV Mass Index: 78.57 43-95/49-115 g/m2 LVOT Diam: 1.90 3.0+(-)1.3 cm 2D Systolic Function EF 4C: 58.40 >55% EF 2C: 54.50 >55% EF BiP: 56.60 >55% Mitral Valve MV Pk E: 0.78 MV PK A: 0.63 MV Decel Time: 204.00 E/A: 1.20 E'Lateral: 9.03 E'Medial: 6.74 E/E' Med: 11.60 E/E' Lat: 8.60 PHT: 60.00 MVA PHT: 3.67 Decel Gem: 3.82 Aortic Valve AoV Pk Cm: 1.18 AoV Mn Cm: 0.84 AoV VTI: 0.25 AoV Pk Grad: 6.00 Aov Mn Grad: 3.00 JAVIER Cont.VTI: 2.29 LVOT LVOT Pk Cm: 0.95 LVOT Mn Cm: 0.68 LVOT VTI: 0.20 LVOT Pk Grad: 4.00 LVOT Mn Grad: 2.00 LVOT Diam: 1.90 LVOT Area: 2.84 Diastolic Function MV Pk E: 0.78 MV Pk A: 0.63 E/A: 1.20 E'Medial: 6.74 E/E' Med: 11.60 E' Laterial: 9.03 E/E' Lat: 8.60 Right Ventricle TAPSE (mm): 18.70 TVS' Cm: 9.46 Tricuspid Valve TR Pk Cm: 1.69 TR Pk Grad: 11.00 RA Press: 3.00 RVSP: 14.00 Great Vessels Aorta Sinus of Valsalva: 3.10 2.0-3.5 cm Ao Asc: 3.10 2.1-3.4 cm Ao Arch: 2.90 Pulmonary Veins Pulm Vein S/D 0.90 Pulmonary Valve PV Pk Cm: 0.77 Peak PV Grad: 2.00 Updated in Other Vendor System with Status of Final Horace Ramos MD electronically signed on 04/08/2025 2:39:11 PM with status of Final
--- OUTSIDE RECORDS SUMMARY | 2025-04-08 09:54 | XMS_ITS | Encounter Summary ---
Author Organization [facility] Address [address] [place] [phone] Phone Care Team Providers Care Site Lead Name Role Phone Lj Chester MD Primary Care Provider Unavail able Encounter Details Date Type Department Care Team (Late st Contact Info) Description 01/19/2017 Procedure Pass [facility] [address] [place] [address] Social History Tobacco Use Types Packs/Day Years [...] documented as of this encounter Care Teams Site Lead Relationship Specialty Start Date End Date Lj Chester MD PCP - General Endocrinology 01/12/17 documented as of this encounter Additional Source Comments The information contained in this document represents components of the legal health record. It is not the complete legal health record.[facility]
--- OUTSIDE RECORDS SUMMARY | 2025-04-08 09:54 | XMS_ITS | Clinical Summary ---
Author Organization [facility] Address [address] [place] [address] Phone Care Team Providers Care Wallpaper Hanger Name Role Phone Lj Chester MD Primary Care Provider Unavail able Allergies Active Allergy Reactions Criticality Noted Date Comments Sacubitril-Valsartan Hives 08/23/2017 Medications carvedilol (COREG) 25 MG tablet Take 25 mg by mouth 2 (two) times a day with meals. Active valsartan (DIOVAN) 160 MG tabletIndicatio ns:one tablet in the morning and one tablet at night (pt. is unsure of mg amt per pill) Take 160 mg by mouth 2 (two) times a day. 160 mg in morning 80 mg at night Indications: one tablet in the morning and one tablet at night (pt. is unsure of mg amt per pill) Active spironolactone (ALDACTONE) 25 MG tablet Take 25 mg by mouth daily. Active furosemide (LASIX) 40 MG tablet Take 40 mg by mouth daily. Active Active Problems No known active problems Social History Tobacco Use Types Packs/Day Years Used Date Smoking Tobacco: Never Smokeless Tobacco: Never Education Answer Date Recorded Are you interested in more education? Not on jalil e 11/25/2022 Are you concerned about learning? Not on file 11/25/2022 No 11/25/2022 No 11/25/2022 Digital Access Answer Date Recorded No 12/26/2022 No 12/26/2022 No 12/26/2022 Reliable internet access at home? Not on file 12/26/2022 Device with a working camera? Not on file Comments Unknown Sex and Gender Information Value Date Recorded Sex Assigned at Not on file Legal Sex Female 2:20 PM EDT Gender Identity Not on file Sexual Orientation Not on file Last Filed Vital Signs Vital Sign Reading Time Taken Comments Blood Pressure 90/62 04/17/2019 2:08 PM EDT Pulse 72 04/17/2019 2:08 PM EDT Temperature - - Respiratory Rate - - Oxygen Saturation 100% 04/17/2019 2:08 PM EDT Inhaled Oxygen Concentration - - Weight 61.2 kg (135 lb) 04/17/2019 2:08 PM EDT Height - - Body Mass Index - - Plan of Treatment Health Maintenance Due Date Last Done Comments CREATININE LEVEL 1975 LIPID PANEL 1975 POTASSIUM LEVEL 1975 HEPATITIS C SCREENING 01/19/1992 HIV ONE-TIME SCREENING (18-6 5 YEARS) 01/19/1992 PAP SMEAR 1995 MAMMOGRAM 2014 Adult Td,Tdap Booster 05/09/2018 05/09/2008 COLOGUARD 2019 COLONOSCOPY 2019 COLORECTAL CANCER SCREENING 2019 FIT TEST 2019 FOBT 2019 SIGMOIDOSCOPY 2019 VIRTUAL COLONOSCOPY 2019 DEPRESSION SCREENING 04/17/2020 04/17/2019 PNEUMOCOCCAL VACCINES (50+ years) (1 of 1 - PCV) 01/19/2024 ZOSTER VACCINES (1 of 2) 01/19/2024 INFLUENZA VACCINE (#1) 2025 05/09/2008 COVID-19 VACCINE (3 - 2024-2 6 season) 2025 09/25/2020, 08/28/2020 SMOKING STATUS SCREENING (On ce After 26 Yrs) Completed 04/17/2019 HEPATITIS A VACCINES Aged Out No long er eligible based on patient's age to complete this topic HIB VACCINES Aged Out No longer eligi ble based on patient's age to complete this topic MENINGOCOCCAL VACCINES (ACWY) Aged Out No longer eligible based on patient's age to complete this topic MENINGOCOCCAL VACCINES (B) Aged Out N o longer eligible based on patient's age to complete this topic Medical Devices Not on file Insurance ED [facility] PPO EPO ED [facility] PPO EPO ED [facility] PPO [facility] PPO EPO ED [place] PPO EPO [facility] PPO EPO Care Teams Wallpaper Hanger Relationship Specialty Start Date End Date Lj Chester MD PCP - General Endocrinology 01/12/17 Additional Source Comments The information contained in this document represents components of the legal health record. It is not the complete legal health record.[facility]
== END ==
LOC: HO.CARD 08:47
PROVIDERS: Visit Provider Internal Medicine Cardiovascular Disease
DX: I42.8 Other cardiomyopathies (principal)
CPT/HCPCS: 93306

== ENCOUNTER → 2025-04-08 08:49 | Outpatient (BNV) | payer BC, SELFPAY | PROVIDERS: Visit Provider Internal Medicine Cardiovascular Disease | DX: I42.8 Other cardiomyopathies (principal); I34.0 Nonrheumatic mitral (valve) insufficiency | CPT/HCPCS: 93306 ==

== ENCOUNTER 2025-04-14 12:22 | Outpatient (AMB) | payer BC, SELFPAY ==
[2025-04-14 12:35] VITALS: BP 100/62; PULSE 66; BMI 27.4
--- NOTE | 2025-04-14 12:35 | A.OFFVIS_ITS ---
Vital Signs 04/14/25 12:35 Height 5 ft 2 in Weight 149 lb 14.629 oz BMI 27.4 BP 100/62 Blood Pressure Location Lt brachial Position Sitting Pulse 66 Intake Visit Reasons: 1 yr w/ [facility]/ clearance gi Intake Note: 1 year follow-up after [employer] [employer] and clearance for colonscopy with ekg feeling good Percussion Teacher Required: No Allergies Entresto Adverse Reaction (Intermediate, Uncoded 03/05/25 16:55) Intolerance Medication List - Last Reconciled 04/14/25 by Horace Ramos MD atorvastatin 10 mg PO BEDTIME 3 months bisacodyl (Dulcolax (bisacodyl)) 20 mg (4 x 5 mg) PO ONCE 1 day carvedilol 25 mg PO BID polyethylene glycol 3350 (Miralax) 238 grams PO ONCE spironolactone 25 mg PO DAILY valsartan 160 mg PO BID HPI Comments Details: Gracy comes for follow-up in 6 months. She has been doing very well overall. She has not been exercising regularly but with regular physical activity and busy life she has no cardiovascular symptoms. Recent echocardiogram shows improvement in LV ejection fraction to normal range. Mild mitral regurgitation is present. She is taking all her medications regularly. No lightheadedness, syncope. No prolonged palpitation irregular heartbeat. No ICD [facility] Medical History Heart failure with reduced ejection fraction ICD (implantable cardioverter-defibrillator) in place Nonischemic cardiomyopathy Mitral regurgitation History of transesophageal echocardiography (KASHIF) Surgical History Hx of colonoscopy Hx of section History of permanent cardiac pacemaker placement Family History Father No problems noted. 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 Current occupational exposures/hazards: No Cognitive needs: No Hearing needs: No Vision needs: No Review of Systems Const Denies chills, Denies fatigue, Denies fever(s), Denies frequent falls, Denies weakness, Denies weight gain and Denies weight loss ENT Denies dizziness Card Denies chest pain, Denies leg edema, Denies lightheadedness, Denies palpitations, Denies dyspnea, Denies dyspnea on exertion, Denies orthopnea and Denies other (loss of consciousness) Resp Denies cough, Denies dyspnea and Denies dyspnea on exertion GI Denies hematochezia and Denies change in stool character Musc Denies abnormal gait, Denies muscle weakness, Denies numbness, Denies radiating pain into limb and Denies tingling Neuro Denies abnormal gait, Denies dizziness, Denies frequent falls, Denies numbness, Denies tingling and Denies weakness Endo Denies fatigue and Denies palpitations Physical Exam Vital Signs: BMI result Body Mass Index 27.4 Const General: cooperative, comfortable, alert, awake and well groomed Nutritional Appearance: average body habitus Orientation/consciousness: patient oriented x3 Limitations: no limitations Neck Neck: Yes normal visual inspection, Yes trachea midline, Yes supple and Yes no JVD Chest Chest palpation & inspection: normal inspection of the chest Resp Effort & Inspection: normal respiratory effort Auscultation: clear to auscultation bilaterally Cardio Jugular venous distension: no JVD Palpation: normal PMI Rate: regular rate Rhythm: regular rhythm Heart sounds: S1 normal heart sound present and S2 normal heart sound present Skin General skin exam: no rashes or lesions noted Neuro General: patient oriented x3 and no focal motor deficits Extrem General: Yes no clubbing, cyanosis or edema Psych Appearance: grossly normal Office Procedures Cardiac Device Check Cardiac Device Check Details: [place] scientific subcutaneous ICD in place. Battery status is excellent. Shock impedance is excellent. Sensing configuration in his excellent. No arrhythmias detected. 45481-Qmorhlq Device Interrogation, implantable defibrillator Procedure code (CPT) selection complete EKG Details: EKGs shows normal sinus rhythm with T-wave changes in the anterior leads, unchanged 31516-Fvmpeavwbbxawmqlc, Complete Assessment & Plan Assessment & Plan (1) Nonischemic cardiomyopathy: Code(s): I42.8 - Other cardiomyopathies Category: Medical Plan: Patient with prior nonischemic cardiomyopathy suspected to be peripartum although now she tells me her brother has similar issues or could be familial cardiomyopathy at this point in time although her LV ejection fraction on medi li therapy has again improved to normal range. She has no cardiac symptoms at this point time, NYHA class 1. Continue current neurohormonal modulation spironolactone, valsartan as well as carvedilol which she is tolerating. Importance of regular physical activity was discussed and she is going to participate in the same. (2) ICD (implantable cardioverter-defibrillator) in place: Comment: Subcutaneous ICD. Code(s): Z95.810 - Presence of automatic (implantable) cardiac defibrillator Category: Medical Plan: ICD in place for primary prevention which is working well and subcutaneous. Jus l follow remotely every 3 months. Follow up in the clinic in 1 year's time. (3) Mitral regurgitation: Code(s): I34.0 - Nonrheumatic mitral (valve) insufficiency Category: Medical Qualifiers: Cardiac valve disease etiology: etiology unspecified Qualified Code(s): I34.0 - Nonrheumatic mitral (valve) insufficiency Plan: Mitral regurgitation which is mild and recurrent but only of mild severity. She had affect her overall prognosis. Will continue monitor by echocardiogram on annual basis. Will follow up in the clinic in 1 year's time, sooner PRN. Thank you for allowing me to partake in her care Coding Level of Care Code Est Pt Level 4 (15698) Complex EM visit Add On G2211 Diagnoses Nonischemic cardiomyopathy I42.8 ICD (implantable cardioverter-defibrillator) in place Z95.810 Mitral valve insufficiency, unspecified etiology I34.0 Cardiac valve disease etiology: etiology unspecified CPT Codes Cardiac Device Check - Cardiac Device 9: [id number] Device Interrogation, implantable defibrillator ([id number]) EKG - CPT: 74641-Dcyeujrmiqobzmttq, Complete ([id number])
--- OUTSIDE RECORDS SUMMARY | 2025-04-14 17:03 | XMS_ITS | Encounter Summary ---
Author Organization [facility] Address [address] [place] [address] Phone Care Team Providers Care Assistant Media Buyer Name Role Phone Lj Chester MD Primary Care Provider Unavail able Encounter Details Date Type Department Care Team (Late st Contact Info) Description 01/19/2017 Procedure Pass [facility] [address] [place] [address] Social History Tobacco Use Types Packs/Day Years [...] documented as of this encounter Care Teams Assistant Media Buyer Relationship Specialty Start Date End Date Lj Chester MD PCP - General Endocrinology 01/12/17 documented as of this encounter Additional Source Comments The information contained in this document represents components of the legal health record. It is not the complete legal health record.[facility]
--- OUTSIDE RECORDS SUMMARY | 2025-04-14 17:03 | XMS_ITS | Clinical Summary ---
Author Organization [facility] Address [address] [facility] [address] [place] [address] Phone Care Team Providers Care Lobbyist Name Role Phone Lj Chester MD Primary [...] Medical Devices Not on file Insurance [facility] PPO EPO [facility] P[facility] P[facility] PPO [facility] P[facility] E[facility] PPO E[facility] [place] P[facility] EPO [facility] PPO EPO Care Teams Lobbyist Relationship Specialty Start Date End Date Lj Chester MD PCP - General Endocrinology 01/12/17 Additional Source Comments The information contained in this document represents components of the legal health record. It is not the complete legal health record.[facility]
== END 2025-04-14 13:07 | disposition home or self-care (01) ==
LOC: HO.HCS 12:23
PROVIDERS: Visit Provider Internal Medicine Cardiovascular Disease
DX: I42.8 Other cardiomyopathies (principal); Z95.810 Presence of automatic (implantable) cardiac defibrillator; I34.0 Nonrheumatic mitral (valve) insufficiency; R94.31 Abnormal electrocardiogram [ECG] [EKG]
CPT/HCPCS: 93010; 93289; 99214

== ENCOUNTER → 2025-04-14 12:22 | Outpatient (BNVA) | payer BC, SELFPAY | PROVIDERS: Visit Provider Internal Medicine Cardiovascular Disease | DX: Z01.810 Encounter for preprocedural cardiovascular examination (principal) | CPT/HCPCS: 93005 ==

== ENCOUNTER → 2025-05-06 23:59 | Outpatient (BNV) | payer BC, SELFPAY ==
--- NOTE | 2025-05-07 12:05 | MHC.OFFVIS ---
Intake Visit Reasons: Remote ICD check- [employer] Allergies Entresto Adverse Reaction (Intermediate, Uncoded 03/05/25 16:55) Intolerance PFSH Medical History Heart failure with reduced ejection fraction ICD (implantable cardioverter-defibrillator) in place Nonischemic cardiomyopathy Mitral regurgitation History of transesophageal echocardiography (KASHIF) Surgical History Hx of colonoscopy Hx of section History of permanent cardiac pacemaker placement Family History Father No problems noted. 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 No arrhythmias detected. Battery life is at 87%. Device function is adequate 55096-[id number] Cardiac Interrogation, implant defibrillator w/interim Procedure code (CPT) selection complete Assessment & Plan Assessment & Plan (1) ICD (implantable cardioverter-defibrillator) in place: Comment: Subcutaneous ICD. Code(s): Z95.810 - Presence of automatic (implantable) cardiac defibrillator Category: Medical Plan: See above Coding Level of Care Code Procedure Only Diagnoses ICD (implantable cardioverter-defibrillator) in place Z95.810 CPT Codes Cardiac Device Check - Cardiac Device 13: 44338-Ijjqjz Cardiac Interrogation, implant defibrillator w/interim ([id number])
== END ==
PROVIDERS: Visit Provider Internal Medicine Cardiovascular Disease
DX: Z45.02 Encounter for adjustment and management of automatic implantable cardiac defibrillator (principal)
CPT/HCPCS: 93295

== ENCOUNTER 2025-07-01 08:39 | Outpatient (REF) | payer BC, SELFPAY ==
--- OUTSIDE RECORDS SUMMARY | 2025-07-01 08:44 | XMS_ITS | Encounter Summary ---
Author Organization [facility] Address [address] [place] [address] Phone Care Team Providers Care Computer Hardware Designer Name Role Phone Lj Chester MD Primary Care Provider Unavail able Encounter Details Date Type Department Care Team (Late st Contact Info) Description 01/19/2017 Procedure Pass [facility] [address] [place] [address] Social History Tobacco Use Types Packs/Day Years [...] documented as of this encounter Care Teams Computer Hardware Designer Relationship Specialty Start Date End Date Lj Chester MD PCP - General Endocrinology 01/12/17 documented as of this encounter Additional Source Comments The information contained in this document represents components of the legal health record. It is not the complete legal health record.[facility]
--- OUTSIDE RECORDS SUMMARY | 2025-07-01 08:44 | XMS_ITS | Clinical Summary ---
Author Organization [facility] Address [address] [facility] [address] [place] [phone] Phone Care Team Providers Care Oral Surgery Physician Name Role Phone Lj Chester MD Primary [...] - 2024-2 6 season) 2025 09/25/2020, 08/28/2020 RSV VACCINE (1 - 1-dose 75+ series) 2049 SMOKING STATUS SCREENING (On ce After 26 [...] Medical Devices Not on file Insurance [facility] PPO EPO [facility] P[facility] E[facility] P[facility] E[facility] PPO EPO Member Subscriber Plan / Payer (Ef fective 2016-Present) Name:Gracy Nice Relation to Subscriber:Self Name:Gracy Nice Payer ID:[id number] (NAIC) Type:PPO Address: [address] [place], [place] [facility] PPO EPO Member Subscriber Plan / Payer (Ef fective 2016-Present) Name:Gracy Nice Relation to Subscriber:Self Name:Gracy Nice Payer ID:[id number] (NAIC) Type:PPO Address: [facility] [id number] [place], [place] [facility] PPO EPO Member Subscriber Plan / Payer (Ef fective 2016-Present) Name:Flavia Nicea Relation to Subscriber:Self Name:Gracy Nice Payer ID:[id number] (NAIC) Type:PPO Address: [address] [place], [place] [facility] PPO EPO [facility] PPO EPO [facility] PPO EPO Care Teams Oral Surgery Physician Relationship Specialty Start Date End Date Lj Chester MD PCP - General Endocrinology 6/15/17 Additional Source Comments The information contained in this document represents components of the legal health record. It is not the complete legal health record.[facility]
[2025-07-01 08:53] LABS: MANUAL DIFF FLAG NO
[2025-07-01 09:03] LABS: Hematocrit 35.3 % (37.0-47.0); Hemoglobin 11.7 g/dl (12.0-16.0); Imm Gran Abs Auto 0.01 X10*3/uL (0.00-0.03); Imm Gran Pct Auto 0.3 % (0.0-0.4); Lymphocytes Absolute Auto 1.5 X10*3/uL (1.2-4.9); Mean Corpuscular HGB Conc 33.1 g/dl (31.0-35.0); Mean Corpuscular Hemoglobin 28.5 pg (27.0-33.0); Mean Corpuscular Volume 85.9 fL (80.0-98.0); NRBC Abs Auto 0.000 X10*3/uL (0.0-0.012); NRBC Pct Auto 0.0 /100WBC (0.0-0.2); Platelet Count 177 X10*3/uL (160-400); Red Blood Count 4.11 X10*6/uL (4.20-5.50); White Blood Count 3.9 X10*3/uL (4.8-10.8)
[2025-07-01 09:17] LABS: Appearance Urine Clear; Glucose Urine UA Negative (Negative); PH 5.5 (5.0-9.0); Specific Gravity - Urine 1.015 (1.005-1.025)
[2025-07-01 09:48] LABS: Alanine Aminotransferase 52 U/L (0-31); Albumin Level 4.4 g/dL (3.5-5.0); Alkaline Phosphatase 53 U/L (39-117); Anion Gap 9 (12-20); Aspartate Amino Transferase 45 U/L (5-31); Blood Urea Nitrogen 10 mg/dL (9-16); Calcium 9.4 mg/dL (8.4-10.2); Carbon Dioxide 28 mmol/L (22-29); Chloride 108 mmol/L (96-108); Cholesterol 169 mg/dL (<200); Estimated Glomerular Filt Rate > 60; HDL Cholesterol 70 mg/dL (>40); Iron 63 mcg/dL (30-160); Percent Iron Saturation 27 % (15-50); Potassium 4.2 mmol/L (3.3-5.1); Sodium 141 mmol/L (135-145); Total Iron Binding Capacity 234 mcg/dL (228-428); Total Protein 7.4 g/dL (6.5-8.0); Triglycerides 60 mg/dL (<150); Unsaturated Iron Binding 171 ug/dL
[2025-07-01 10:17] LABS: Folate 9.7 ng/mL (> or = 4.0); Vitamin B12 858 pg/mL (200-900)
== END 2025-07-01 08:40 | disposition home or self-care (01) ==
LOC: HO.LAB 08:39
DX: I42.8 Other cardiomyopathies (principal); I50.9 Heart failure, unspecified; I34.0 Nonrheumatic mitral (valve) insufficiency; E78.5 Hyperlipidemia, unspecified; D64.9 Anemia, unspecified; E78.00 Pure hypercholesterolemia, unspecified; Z95.810 Presence of automatic (implantable) cardiac defibrillator
CPT/HCPCS: 36415; 80053; 80061; 81003; 82607; 82746; 83540; 84443; 85025

== ENCOUNTER 2025-07-16 09:29 | Outpatient (REF) | payer BC, SELFPAY ==
--- NOTE | ~2025-07-16 | US_ITS ---
CLINICAL HISTORY: R74.8 - Abnormal levels of other serum enzymes US abdomen complete Comparison: None provided Findings: The visualized pancreas head is normal. The visualized aorta and inferior vena cava are normal caliber. The liver is normal in size and echogenicity, no discrete lesion is visualized in the imaged liver. No intrahepatic bile duct dilatation. The common duct is 5 mm in diameter. Physiologic distention of the gallbladder, no stone or sludge, 5 x 3 x 5 mm polyp noted, no gallbladder wall thickening, negative sonographic Gandhi's sign. The main portal vein is patent with antegrade flow. The right kidney lower pole is not well seen, small in size and measures 8.4 cm in length, no apparent cortical thinning, normal in echogenicity, no calculus, mass or hydronephrosis. The left kidney lower pole is not well seen and grossly normal, 9.7 cm in length. The spleen is not well visualized due to bowel gas shadowing, not enlarged, 6.4 cm in length. No free fluid in the abdomen. Impression: 1. 5 mm gallbladder polyp. 2. Mildly small right kidney is otherwise grossly normal. Society of Radiologists in Ultrasound guidelines (202) The Society of Radiologists in Ultrasound (SRU) found no link between gallbladder carcinoma and polyps 17. Most gallbladder cancers arise from flat dysplastic epithelium that thickens as the cancer progresses. They recognize three categories of polyps: non-neoplastic, benign neoplastic, and malignant. The follow-up period is shortened to 3 years. Concerning growth is increased to >4 mm per annum. Slow growth of benign polyps up to 2 mm per annum is common, and conversely, many small polyps disappear. Most malignant polyps are >20 mm. According to the 2021 guidelines: * extremely low risk polyps (pedunculated ekgz-uq-rma-wall, or thin stalk): * ?9 mm: no follow-up * 10-14 mm: follow-up ultrasound at 6, 12, and 24 months * ?15 mm: surgical consultation * low risk polyps (pedunculated with thick stalk, or sessile): * ?6 mm: no follow-up * 7-9 mm: follow-up ultrasound at 12 months * 10-14 mm: follow-up ultrasound at 6, 12, 24, and 36 months or surgical consultation * ?15 mm: surgical consultation * indeterminate risk polyps (focal wall thickening ?4 mm adjacent to polyp): * ?6 mm: follow-up ultrasound at 6, 12, 24, and 36 months or surgical consultation * ?7 mm: surgical consultation This document has been electronically signed by: Johana Jean Baptiste MD on 07/16/2025 14:20:23
--- OUTSIDE RECORDS SUMMARY | 2025-07-16 10:55 | XMS_ITS | Clinical Summary ---
Author Organization [facility] Address [address] [facility] [address] [place] [address] Phone Care Team Providers Care Histologic Aide Name Role Phone Lj Chester MD Primary [...] PPO EPO [facility] PPO EPO Member Subscriber Plan / Payer (Ef fective 2016-Present) Name:Gracy Nice Relation to Subscriber:Self Name:Gracy Nice Payer ID:[id number] (NAIC) Type:PPO Address: [address] [place], [place] [facility] PPO EPO Member Subscriber Plan / Payer (Ef fective 2016-Present) Name:Gracy Nice Relation to Subscriber:Self Name:Gracy Nice Payer ID:[id number] (NAIC) Type:PPO Address: [facility] [id number] [place], [place] [facility] PPO EPO Member Subscriber Plan / Payer (Ef fective 2016-Present) Name:Flavia Nicea Relation to Subscriber:Self Name:Gracy Nice Payer ID:[id number] (NAIC) Type:PPO Address: [address] [place], [place] [facility] PPO EPO [facility] PPO EPO [facility] PPO EPO Care Teams Histologic Aide Relationship Specialty Start Date End Date Lj Chester MD PCP - General Endocrinology 6/15/17 Additional Source Comments The information contained in this document represents components of the legal health record. It is not the complete legal health record.[facility]
--- OUTSIDE RECORDS SUMMARY | 2025-07-16 10:55 | XMS_ITS | Encounter Summary ---
Author Organization [facility] Address [address] [place] [phone] Phone Care Team Providers Care Picu Nurse Name Role Phone Lj Chester MD Primary Care Provider Unavail able Encounter Details Date Type Department Care Team (Late st Contact Info) Description 01/19/2017 Procedure Pass [facility] [address] [place] [address] Social History Tobacco Use Types Packs/Day Years [...] documented as of this encounter Care Teams Picu Nurse Relationship Specialty Start Date End Date Lj Chester MD PCP - General Endocrinology 01/12/17 documented as of this encounter Additional Source Comments The information contained in this document represents components of the legal health record. It is not the complete legal health record.[facility]
== END 2025-07-16 09:30 | disposition home or self-care (01) ==
LOC: HO.HMGCX 09:29
DX: R74.8 Abnormal levels of other serum enzymes (principal); R17 Unspecified jaundice
CPT/HCPCS: 76700

== ENCOUNTER → 2025-07-16 09:33 | Outpatient (BNV) | payer BC, SELFPAY | PROVIDERS: Visit Provider Radiology Diagnostic Radiology | DX: K82.4 Cholesterolosis of gallbladder (principal) | CPT/HCPCS: 76700 ==

== ENCOUNTER → 2025-07-23 08:45 | Outpatient (BNV) | payer BC, SELFPAY | PROVIDERS: Visit Provider Radiology Body Imaging | DX: Z12.31 Encounter for screening mammogram for malignant neoplasm of breast (principal) | CPT/HCPCS: 77063; 77067 ==

== ENCOUNTER 2025-07-23 08:48 | Outpatient (REF) | payer BC, SELFPAY ==
--- NOTE | ~2025-07-23 | MM_ITS ---
EXAMINATION: MM SCREENING DIGITAL BREAST TOMOSYNTHESIS, BILATERAL CLINICAL INFORMATION: -Screening. Asymptomatic. -Ultrasound-guided needle core biopsy of the 2 areas in right breast on May 09, 2017: 11:00 (ribbon shape clip) and 12:00 (coil shape clip), both with benign results. COMPARISON: Comparison made to multiple prior, most recent February 02, 2024, and most remote January 21, 2015. TECHNIQUE: Digital breast tomosynthesis is performed in mediolateral oblique and craniocaudal views along with computer-aided detection (CAD). Synthesized 2D images are generated from the tomosynthesis. FINDINGS: BREAST COMPOSITION: The breasts are heterogeneously dense, which may obscure small masses. RIGHT BREAST: Two tissue markers from previous needle core biopsies. No significant masses, suspicious calcifications or other abnormalities are seen. LEFT BREAST: No significant masses, suspicious calcifications or other abnormalities are seen. MM/MM tomosynthesis screening BI IMPRESSION: BILATERAL BREASTS: Benign, no mammographic evidence of malignancy. Normal interval follow-up is recommended in 12 months. ASSESSMENT: BI-RADS: Category 2: Benign RECOMMENDATION: Routine annual mammography screening. FOLLOW-UP: 1 year F/U This examination should not preclude the clinical evaluation of a suspicious palpable abnormality. This patient's information was entered into a reminder system with a target due date for their next mammogram. Electronically signed by: Kevin Taylor MD 07/28/2025 08:[address] [facility]
--- OUTSIDE RECORDS SUMMARY | 2025-07-23 08:50 | XMS_ITS | Encounter Summary ---
Author Organization [facility] Address [address] [place] [phone] Phone Care Team Providers Care Boat Loader Name Role Phone Lj Chester MD Primary Care Provider Unavail able Encounter Details Date Type Department Care Team (Late st Contact Info) Description 01/19/2017 Procedure Pass [facility] [address] [place] [address] Social History Tobacco Use Types Packs/Day Years [...] documented as of this encounter Care Teams Boat Loader Relationship Specialty Start Date End Date Lj Chester MD PCP - General Endocrinology 01/12/17 documented as of this encounter Additional Source Comments The information contained in this document represents components of the legal health record. It is not the complete legal health record.[facility]
--- OUTSIDE RECORDS SUMMARY | 2025-07-23 08:50 | XMS_ITS ---
Author Name [facility] Organization Unknown Care Team Organization Name Specialty Phone Email Start Date End [facility] 07/16/2025
--- OUTSIDE RECORDS SUMMARY | 2025-07-23 08:50 | XMS_ITS | Clinical Summary ---
Author Organization [facility] Address [address] [facility] [address] [place] [address] Phone Care Team Providers Care Supervising Librarian Name Role Phone Lj Chester MD Primary [...] Medical Devices Not on file Insurance [facility] PPO EPO [facility] PPO EPO [facility] PPO EPO [facility] PPO EPO Member Subscriber Plan / Payer (Ef fective 2016-Present) Name:Gracy Nice Relation to Subscriber:Self Name:Gracy Nice Payer ID:[id number] (NAIC) Type:PPO Address: [address] [place], [place] [facility] PPO EPO Member Subscriber Plan / Payer (Ef fective 2016-Present) Name:Gracy Nice Relation to Subscriber:Self Name:Gracy Nice Payer ID:[id number] (NAIC) Type:PPO Address: [facility] [address] [place], [place] [facility] PPO EPO Member Subscriber Plan / Payer (Ef fective 2016-Present) Name:Flavia Nicea Relation to Subscriber:Self Name:Gracy Nice Payer ID:[id number] (NAIC) Type:PPO Address: [address] [place], [place] [facility] PPO EPO [facility] PPO EPO [facility] PPO EPO Care Teams Supervising Librarian Relationship Specialty Start Date End Date Lj Chester MD PCP - General Endocrinology 6/15/17 Additional Source Comments The information contained in this document represents components of the legal health record. It is not the complete legal health record.[facility]
--- OUTSIDE RECORDS SUMMARY | 2025-07-23 08:50 | XMS_ITS | Clinical Summary ---
Author Organization [facility] Address [address] [id number] Care Team Providers Care Area Field Person Name Role Phone Unknown Primary Care Provider [phone] Social History Tobacco Use Types Packs/Day Years Used Date Smoking Tobacco: Never Assessed Comments Unknown Sex and Gender Information Value Date Recorded Sex Assigned at Female 07/16/2025 12:46 PM EST Legal Sex Female 1:02 PM EST Gender Identity Female 07/16/2025 12:46 PM EST Sexual Orientation Other 07/16/2025 12 :46 PM EST Plan of Treatment Upcoming Encounters Date Type Department Care Team (Late st Contact Info) Description 10/13/2025 10:00 AM EDT Clinical Support [facility] Heart & V[facility] [address] [facility] [address] [place] [id number] Dolores Michelle, MS,[facility] [address] [place], [place] [id number] Health Maintenance Due Date Last Done Comments Hepatitis C Virus Screening 1974 HIV Screening 1987 DTaP/Tdap/Td Vaccines (1 - Tdap) 1993 Hepatitis B Vaccines (1 of 3 - 19+ 3-dose series) 12/30 Pap Smear (Ages 21-65) 1995 Mammogram 2014 Colonoscopy 2019 Pneumococcal Vaccines 50+ (1 of 1 - PCV) 01/19/2024 RSV Vaccine 50 years and old er and Patients (1 - Risk 50-74 years 1-dose series) 01/19/2024 Zoster (Shingles) Vaccine (1 of 2) 01/19/2024 Influenza Vaccine 02/28/2025 COVID-19 Vaccine ( season) 2025 Care Teams Area Field Person Relationship Specialty Start Date End Date Unknown Unknow Provider Address PCP - General 07/16/25
== END 2025-07-23 08:49 | disposition home or self-care (01) ==
LOC: HO.MAMMO 08:48
DX: Z12.31 Encounter for screening mammogram for malignant neoplasm of breast (principal)
CPT/HCPCS: 77063; 77067

== ENCOUNTER 2025-07-23 13:32 | Outpatient (AMB) | payer BC, SELFPAY ==
[2025-07-23 13:42] VITALS: BP 98/60; PULSE 73; RESP 18; O2SAT 100; BMI 28.0
--- NOTE | 2025-07-23 13:42 | A.OFFPC_ITS ---
Vital Signs 07/23/25 13:42 Height 5 ft 2 in Weight 153 lb 4 oz BMI 28.0 BP 98/60 Blood Pressure Location Lt brachial Position Sitting Respiration 18 Pulse 73 Pulse Source Pulse Oximeter Temp Source Temporal Artery Scan Pulse Oximetry (%) 100 Oxygen Delivery Method Room Air Intake Visit Reasons: hlt/chf Cutter Brake Lining Required: No Accompanied by: Self / Same As Patient Allergies Entresto Adverse Reaction (Intermediate, Uncoded 07/24/25 20:40) Intolerance Medication List - Last Reconciled 07/23/25 by DANNA Mckee atorvastatin 10 mg PO BEDTIME 3 months bisacodyl (Dulcolax (bisacodyl)) 20 mg (4 x 5 mg) PO ONCE 1 day carvedilol 25 mg PO BID polyethylene glycol 3350 (Miralax) 238 grams PO ONCE spironolactone 25 mg PO DAILY valsartan 160 mg PO BID Tobacco use date assessed: 07/23/25 Dental Screening Dental Screen Date: 07/23/25 Did you have a dental visit in the last 12 months?: Yes Did you have a dental problem in the last 6 months where you did not have access to dental care?: No Was dental information given to patient?: Patient has dentist HPI HPI Comments History of Present Illness Details The patient is a 50 year old female presenting for HLD, anemia, elevated liver enzymes, CHF, nonischemic cardiomyopathy follow-up, recent imaging and lab results, as well as medication management. A recent abdominal ultrasound revealed that one of her kidneys is smaller than the other and identified a 5 mm gallbladder polyp, physiologic distention of gallbladder, no gallbladder wall thickening, negative sonographic Gandhi's sign, which is a common finding. A follow-up ultrasound to recheck this was recommended in three years. The patient's liver function is being monitored in the context of her medication, and a recent ultrasound showed no evidence of fatty liver. Although she had previously stopped her statin without completing a three-month course, her LDL cholesterol levels have been decreasing. Other laboratory results are noted to be good, including her platelets and kidney function, and her urinalysis is normal. Health Maintenance - A follow-up kidney ultrasound is recom mended in three years to monitor a renal cyst. - Ongoing monitoring of liver function a nd lipid levels is planned due to medication use. - Additional blood tests, including a fe rritin level and a hepatitis panel, have been ordered for further liver evaluation. Social History - Employment: The patient is currently w orking. Results - Renal Ultrasound: Findings show one ki dney is slightly smaller and there is a 1.5 cm benign-appearing globe/cyst. - Liver Ultrasound: No evidence of fatty liver was observed. - Labs: Platelet count is good. - Kidney function: Appears good. - Lipid Panel: LDL cholesterol is trendi ng downward. - Urinalysis: Results are good. PFSH Medical History Heart failure with reduced ejection fraction ICD (implantable cardioverter-defibrillator) in place Nonischemic cardiomyopathy Mitral regurgitation History of transesophageal echocardiography (KASHIF) Surgical History Hx of colonoscopy Hx of section History of permanent cardiac pacemaker placement Family History Father No problems noted. 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 Depression Screening Interpretation: Negative Depression Screening Done: Yes Source: Developed by Drs. Lennox Samaniego, Sia Mcdowell, Micha Torres and colleagues, with an educational george from [employer] Thrive Questionnaire Date Thrive assessed: 07/23/25 I am a: Patient What is your living situation today?: I have a steady place to live Within the past 12 months, did the food you bought not last and you didn't have the money to get more?: Never true Within the past 12 months, did you worry whether your food would run out before you got money to buy more?: Never true Do you have trouble paying for medicines?: No Do you have trouble getting transportation to medical appointments?: No Do you have trouble paying your heating and electricity bill?: No Do you have trouble taking care of your child, family member or friend?: No Do you have trouble with day-to-day activities such as bathing, preparing meals, shopping, managing finances, etc.?: No Are you currently unemployed and looking for a job?: No Are you interested in more education?: No Currently or been in a relationship where the following occur: No concerns reported THRIVE Score: 0 RUFINA-7 AMB Questionnaire RUFINA-7 Date RUFINA - 7 assessed: 03/05/25 Source: Developed by Drs. Lennox Samaniego, Sia Mcdowell, Micha Torres and colleagues, with an educational george from [employer] Review of Systems Narrative Review of Systems - Gastrointestinal: Denies stomach pain. - Constitutional: Reports feeling good. Const Denies body aches, Denies chills, Denies fever(s), Denies headache(s) and Denies poor appetite Eyes Reports no additional complaints ENT Denies dysphagia, Denies dizziness, Denies headache(s) and Denies odynophagia Card Denies chest pain, Denies syncope, Denies edema, Denies irregular heart rhythm, Denies lightheadedness and Denies dyspnea Resp Denies cough and Denies dyspnea GI Denies abdominal pain, Denies constipation, Denies dysphagia, Denies diarrhea, Denies nausea, Denies odynophagia and Denies vomiting Reports no additional complaints Musc Reports no additional complaints and Denies abnormal gait Skin/Breast Reports system reviewed and no additional complaints, except as documented Neuro Denies abnormal gait, Denies dizziness, Denies syncope and Denies headache(s) Psych Reports no additional complaints Physical exam (Primary Care) Vital Signs: Last Vital Signs Pulse 73 07/23/25 13:42 Resp 18 07/23/25 13:42 BP 98/60 07/23/25 13:42 Pulse Ox 100 07/23/25 13:42 Oxygen Delivery Method Room Air 07/23/25 13:42 BMI result Body Mass Index 28.0 Tobacco/Smoking Status: Tobacco use Status Tobacco use date assessed 07/23/25 07/23/25 13:48 Patient Tobacco Use Status Never used Tobacco 07/23/25 13:48 e-Cigarette/Vaping Use Never Used 07/23/25 13:48 Depression Screening Interpretation: Negative Thrive Assessment: Date of Thrive Assessment Date Thrive assessed 07/23/25 07/23/25 13:48 Currently or been in a relationship where the following occur: No concerns reported Narrative Physical Exam - Vitals: Blood pressure was low normal. - Cardiovascular/Respiratory: Auscultation was performed. Const General: cooperative, healthy appearing, comfortable and no acute distress Orientation/consciousness: patient oriented x3 HENMT Head: Yes normocephalic Ears: hearing grossly normal bilaterally General nose exam: Normal external nose present Eyes General: appearance normal, both eyes and all related structures Conjunctivae: conjunctivae normal Neck Neck: Yes full ROM and Yes no lymphadenopathy Resp Effort & Inspection: normal respiratory effort Auscultation: clear to auscultation bilaterally, no crackles, no rales, no rhonchi and no wheezes Cardio Rate: regular rate Rhythm: regular rhythm Skin General skin exam: no rashes or lesions noted Neuro General: patient oriented x3 Gait exam (Neuro): Normal gait present Extrem General: Yes normal to inspection, Yes full ROM and No edema Psych Affect: normal affect Attitude: cooperative Insight: Good insight present (Psych) Judgement: Good judgement present (Psych) Results Reviewed Results Reviewed: Laboratory Tests 07/01/25 07/01/25 08:46 08:51 WBC 3.9 L RBC 4.11 L Hgb 11.7 L Hct 35.3 L MCV 85.9 MCH 28.5 MCHC 33.1 RDW 11.9 Plt Count 177 Sodium 141 Potassium 4.2 Chloride 108 Carbon Dioxide 28 Anion Gap 9 L BUN 10 Creatinine 0.90 Estim Creat Clear Calc Not Reportable Estimated GFR > 60 Fasting Glucose 93 Calcium 9.4 Iron 63 TIBC 234 % Saturation 27 Unsat Iron Binding 171 Total Bilirubin 1.5 H AST 45 H ALT 52 H Alkaline Phosphatase 53 Total Protein 7.4 Albumin 4.4 Triglycerides 60 Cholesterol 169 LDL Cholesterol, Calc 87 HDL Cholesterol 70 Vitamin B12 858 Folate 9.7 TSH 2.13 Urine Color Yellow Urine Appearance Clear Urine pH 5.5 Ur Specific [place] 1.015 Urine Protein Negative Urine Glucose (UA) Negative Urine Ketones Negative Urine Blood Negative Urine Nitrite Negative Ur Leukocyte Esterase Negative Coding Level of Care Code Est Pt Level 4 (69812) Diagnoses ICD (implantable cardioverter-defibrillator) in place Z95.810 Nonischemic cardiomyopathy I42.8 Mitral valve insufficiency, unspecified etiology I34.0 Cardiac valve disease etiology: etiology unspecified High cholesterol E78.00 Congestive heart failure, unspecified HF chronicity, unspecified heart failure type I50.9 Heart failure type: unspecified Heart failure chronicity: unspecified Anemia, unspecified type D64.9 Anemia type: unspecified type Leukopenia, unspecified type D72.819 Leukopenia type: unspecified Elevated liver enzymes R74.8 Gallbladder polyp K82.4 Time Spent (min) 37 Assessment & Plan Assessment & Plan (1) ICD (implantable cardioverter-defibrillator) in place: Comment: Subcutaneous ICD. Code(s): Z95.810 - Presence of automatic (implantable) cardiac defibrillator Category: Medical Plan: Subcutaneous ICD placed in 2018. Followed by Cardiology (every six-months) (2) Nonischemic cardiomyopathy: Code(s): I42.8 - Other cardiomyopathies Category: Medical Plan: Abnormal EKG status post subcutaneous ICD in 2018 Follow up with Cardiology as scheduled (3) Mitral regurgitation: Code(s): I34.0 - Nonrheumatic mitral (valve) insufficiency Category: Medical Qualifiers: Cardiac valve disease etiology: etiology unspecified Qualified Code(s): I34.0 - Nonrheumatic mitral (valve) insufficiency Plan: Follow up with Cardiology as scheduled (4) High cholesterol: Code(s): E78.00 - Pure hypercholesterolemia, unspecified Category: Medical Plan: LDL 87 mg/dL (in September LDL was 188, then decreased 08/31/2014 in December on atorvastatin 10 mg). Mild elevation in liver enzymes from the patient to stop medication midway in three-month cycles Abdominal ultrasound negative for fatty liver or advanced liver disease Instruct the patient to resume atorvastatin 10 mg We will recheck lipid panel in 3 months (5) CHF (congestive heart failure): Code(s): I50.9 - Heart failure, unspecified Category: Medical Qualifiers: Heart failure type: unspecified Heart failure chronicity: unspecified Qualified Code(s): I50.9 - Heart failure, unspecified Plan: Continue carvedilol 25 mg b.i.d., spironolactone 25 mg b.i.d., valsartan 160 mg b.i.d. Reinforced low-sodium diet and fluid restriction due to CHF Follow up with Cardiology as scheduled (6) Anemia: Code(s): D64.9 - Anemia, unspecified Category: Medical Qualifiers: Anemia type: unspecified type Qualified Code(s): D64.9 - Anemia, unspecified Plan: Patient has a normocytic, normochromic anemia. We will add an iron panel, B12 and folate on her follow up labs to further evaluate. Iron, folate and B12 levels were normal on recent labs, bilirubin continues to be elevated, will evaluated the patient for hemolysis as well. 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 We will continue to monitor CBC (8) Elevated liver enzymes: Code(s): R74.8 - Abnormal levels of other serum enzymes Category: Medical Plan: Mild elevated liver enzymes started after the start of atorvastatin. Abdominal ultrasound negative for fatty liver or advanced liver disease. Instruct the patient to resume atorvastatin 10 mg. We will continue to monitor liver enzymes. (9) Gallbladder polyp: Code(s): K82.4 - Cholesterolosis of gallbladder Category: Medical Plan: 5 mm gallbladder polyp noted on ultrasound. Recommendation to repeat testing 3 years. Orders: Orders Complete Blood Count Auto Diff 3 Months D64.9 - Anemia, unspecified, E78.00 - Pure hypercholesterolemia, unspecified, E78.5 - Hyperlipidemia, unspecified, I34.0 - Nonrheumatic mitral (valve) insufficiency, I42.8 - Other cardiomyopathies, I50.9 - Heart failure, unspecified, R17 - Unspecified jaundice, R74.01 - Elevation of levels of liver transaminase levels, R74.8 - Abnormal levels of other serum enzymes, Z95.810 - Presence of automatic (implan table) cardiac defibrillator Comprehensive [place]. Panel Fast 3 Months D64.9 - Anemia, unspecified, E78.00 - Pure hypercholesterolemia, unspecified, E78.5 - Hyperlipidemia, unspecified, I34.0 - Nonrheumatic mitral (valve) insufficiency, I42.8 - Other cardiomyopathies, I50.9 - Heart failure, unspecified, R17 - Unspecified jaundice, R74.01 - Elevation of levels of liver transaminase levels, R74.8 - Abnormal levels of other serum enzymes, Z95.810 - Presence of automatic (implantable) cardiac defibrillator Lipid Panel 3 Months D64.9 - Anemia, unspecified, E78.00 - Pure hypercholesterolemia, unspecified, E78.5 - Hyperlipidemia, unspecified, I34.0 - Nonrheumatic mitral (valve) insufficiency, I42.8 - Other cardiomyopathies, I50.9 - Heart failure, unspecified, R17 - Unspecified jaundice, R74.01 - Elevation of levels of liver transaminase levels, R74.8 - Abnormal levels of other serum enzymes, Z95.810 - Presence of automatic (implantable) cardiac defibrillator Vitamin D 25-OH Total 3 Months D64.9 - Anemia, unspecified, E78.00 - Pure hypercholesterolemia, unspecified, E78.5 - Hyperlipidemia, unspecified, I34.0 - Nonrheumatic mitral (valve) insufficiency, I42.8 - Other cardiomyopathies, I50.9 - Heart failure, unspecified, R17 - Unspecified jaundice, R74.01 - Elevation of levels of liver transaminase levels, R74.8 - Abnormal levels of other serum enzymes, Z95.810 - Presence of automatic (implantable) cardiac defibrillator Bilirubin Direct 3 Months D64.9 - Anemia, unspecified, R17 - Unspecified jaundice Reticulocyte Count 3 Months D64.9 - Anemia, unspecified, R17 - Unspecified jaundice Lactate Dehydrogenase 3 Months D64.9 - Anemia, unspecified, R17 - Unspecified jaundice UA CC w/rflx Micro + Cult 3 Months D64.9 - Anemia, unspecified, E78.00 - Pure hypercholesterolemia, unspecified, E78.5 - Hyperlipidemia, unspecified, I34.0 - Nonrheumatic mitral (valve) insufficiency, I42.8 - Other cardiomyopathies, I50.9 - Heart failure, unspecified, R17 - Unspecified jaundice, R74.01 - Elevation of levels of liver transaminase levels, R74.8 - Abnormal levels of other serum enzymes, Z95.810 - Presence of automatic (implantable) cardiac defibrillator TSH reflex Free T4 3 Months D64.9 - Anemia, unspecified, E78.00 - Pure hypercholesterolemia, unspecified, E78.5 - Hyperlipidemia, unspecified, I34.0 - Nonrheumatic mitral (valve) insufficiency, I42.8 - Other cardiomyopathies, I50.9 - Heart failure, unspecified, R17 - Unspecified jaundice, R74.01 - Elevation of levels of liver transaminase levels, R74.8 - Abnormal levels of other serum enzymes, Z95.810 - Presence of automatic (implantable) cardiac defibrillator Haptoglobin 3 Months D64.9 - Anemia, unspecified, R17 - Unspecified jaundice
== END 2025-07-23 14:09 | disposition home or self-care (01) ==
LOC: HO.HMCH 13:33
DX: Z95.810 Presence of automatic (implantable) cardiac defibrillator (principal); I42.8 Other cardiomyopathies; I34.0 Nonrheumatic mitral (valve) insufficiency; E78.00 Pure hypercholesterolemia, unspecified; I50.9 Heart failure, unspecified; D64.9 Anemia, unspecified; D72.819 Decreased white blood cell count, unspecified; R74.8 Abnormal levels of other serum enzymes; K82.4 Cholesterolosis of gallbladder

== ENCOUNTER 2025-07-29 09:09 | Outpatient (REF) | payer BC, SELFPAY ==
[2025-07-29 09:35] LABS: MANUAL DIFF FLAG NO
[2025-07-29 09:43] LABS: Hematocrit 39.0 % (37.0-47.0); Hemoglobin 13.0 g/dl (12.0-16.0); Imm Gran Abs Auto 0.01 X10*3/uL (0.00-0.03); Imm Gran Pct Auto 0.2 % (0.0-0.4); Lymphocytes Absolute Auto 1.9 X10*3/uL (1.2-4.9); Mean Corpuscular HGB Conc 33.3 g/dl (31.0-35.0); Mean Corpuscular Hemoglobin 28.4 pg (27.0-33.0); Mean Corpuscular Volume 85.2 fL (80.0-98.0); NRBC Abs Auto 0.000 X10*3/uL (0.0-0.012); NRBC Pct Auto 0.0 /100WBC (0.0-0.2); Platelet Count 191 X10*3/uL (160-400); Red Blood Count 4.58 X10*6/uL (4.20-5.50); White Blood Count 4.1 X10*3/uL (4.8-10.8)
[2025-07-29 10:50] LABS: Appearance Urine Clear; Glucose Urine UA Negative (Negative); PH 5.5 (5.0-9.0); Specific Gravity - Urine 1.015 (1.005-1.025)
--- OUTSIDE RECORDS SUMMARY | 2025-07-29 11:31 | XMS_ITS | Clinical Summary ---
Author Organization [facility] Address [address] [facility] [address] [place] [phone] Phone Care Team Providers Care Drawer Hardware Worker Name Role Phone Lj Chester MD Primary [...] Payer ID:[id number] (NAIC) Type:PPO Address: [address] [place], [place] [facility] PPO EPO Member Subscriber Plan / Payer (Ef fective 2016-Present) Name:Gracy Nice Relation to Subscriber:Self Name:Gracy Nice Payer ID:[id number] (NAIC) Type:PPO Address: [facility] [address] [place], [place] [facility] PPO EPO Member Subscriber Plan / Payer (Ef fective 2016-Present) Name:Flavia Nicea Relation to Subscriber:Self Name:Gracy Nice Payer ID:[id number] (NAIC) Type:PPO Address: [address] [place], [place] [facility] PPO EPO [facility] PPO EPO [facility] PPO EPO Care Teams Drawer Hardware Worker Relationship Specialty Start Date End Date Lj Chester MD PCP - General Endocrinology 6/15/17 Additional Source Comments The information contained in this document represents components of the legal health record. It is not the complete legal health record.[facility]
--- OUTSIDE RECORDS SUMMARY | 2025-07-29 11:31 | XMS_ITS | Clinical Summary ---
Author Organization [facility] Address [address] [id number] Care Team Providers Care Production Analyst Name Role Phone Unknown Primary Care Provider [phone] Social History Tobacco Use Types Packs/Day Years [...] Description 10/13/2025 10:00 AM EDT Clinical Support [facility] [address] [facility] [address] [place] [id number] Dolores Michelle, MS,[facility] [address] [place], [place] [phone] Health Maintenance Due Date Last Done Comments [...] COVID-19 Vaccine ( season) 2025 Care Teams Production Analyst Relationship Specialty Start Date End Date Unknown Unknow Provider Address PCP - General 07/16/25
--- OUTSIDE RECORDS SUMMARY | 2025-07-29 11:31 | XMS_ITS | Encounter Summary ---
Author Organization [facility] Address [address] [place] [phone] Phone Care Team Providers Care Sand Worker Name Role Phone Lj Chester MD Primary Care Provider Unavail able Encounter Details Date Type Department Care Team (Late st Contact Info) Description 01/19/2017 Procedure [facility] [address] [place] [address] Social History Tobacco Use Types Packs/Day Years [...] documented as of this encounter Care Teams Sand Worker Relationship Specialty Start Date End Date Lj Chester MD PCP - General Endocrinology 01/12/17 documented as of this encounter Additional Source Comments The information contained in this document represents components of the legal health record. It is not the complete legal health record.[facility]
[2025-07-29 12:04] LABS: Ferritin 150 ng/mL (10-250)
[2025-07-29 12:17] LABS: HBS Num1 27.55 mIU/mL (0-7.99); HBc Num1 0.08 S/CO (0.00-0.79); HBsAGNum1 0.45 S/CO (0.00-0.99); Hepatitis A Antibody IgM 0.24 Index (0-0.79); Hepatitis B Surface Antigen Negative (Negative); ~HepC Num1 0.11 S/CO (0.00-0.79); ~Hepatitis A Antibody IgM Nonreactive (Nonreactive); ~Hepatitis B Surface Antibody REACTIVE (Nonreactive); ~Hepatitis C Antibody Nonreactive (Nonreactive)
== END 2025-07-29 09:10 ==
LOC: HO.LAB 09:09
DX: Z00.00 Encounter for general adult medical examination without abnormal findings (principal); I42.8 Other cardiomyopathies; I34.0 Nonrheumatic mitral (valve) insufficiency; I50.9 Heart failure, unspecified; E78.5 Hyperlipidemia, unspecified; E78.00 Pure hypercholesterolemia, unspecified; R74.8 Abnormal levels of other serum enzymes; Z95.810 Presence of automatic (implantable) cardiac defibrillator
CPT/HCPCS: 36415; 81003; 82728; 82947; 85025; 86704; 86706; 86709; 86803; 87340